=== PATIENT | female | born 1945 | race Hispanic/Latino ===

== ENCOUNTER 2017-02-23 03:51 | Outpatient (CLI) | payer MEDICARE | END 2017-02-23 03:52 | disposition home or self-care (01) | LOC: BICULT 03:51 | PROVIDERS: ATTEND Nurse Practitioner Family | DX: R10.11 Right upper quadrant pain (principal); K76.0 Fatty (change of) liver, not elsewhere classified; Z90.49 Acquired absence of other specified parts of digestive tract | CPT/HCPCS: 76705 ==

== ENCOUNTER 2017-12-28 11:04 | Outpatient (CLI) | payer MEDICARE | END 2017-12-28 11:05 | disposition home or self-care (01) | LOC: BICMAMMO 11:04 | PROVIDERS: ATTEND Nurse Practitioner Family | DX: Z12.31 Encounter for screening mammogram for malignant neoplasm of breast (principal); R92.1 Mammographic calcification found on diagnostic imaging of breast; Z80.3 Family history of malignant neoplasm of breast | CPT/HCPCS: 77063; 77067 ==

== ENCOUNTER 2018-08-04 10:17 | Outpatient (CLI) | payer OTHER ==
--- NOTE | 2018-08-04 10:36 | RAD ---
EXAM: Chest 2 views: HISTORY: Right chest pain COMPARISON: 04/29/2016 FINDINGS: There is a normal-sized cardiomediastinal silhouette. Atherosclerotic calcific lesions are seen in t he aorta. There is no evidence of consolidation, mass, or pleural effusion. The bones are unremarkable. IMPRESSION: No evidence of acute cardiopulmonary disease
== END 2018-08-04 10:18 | disposition home or self-care (01) ==
LOC: BICRAD 10:17
PROVIDERS: ATTEND Nurse Practitioner Family
DX: R07.89 Other chest pain (principal)
CPT/HCPCS: 71046

== ENCOUNTER 2018-09-26 09:17 | Outpatient (CLI) | payer OTHER, MEDICAID ==
--- NOTE | 2018-09-26 11:33 | ULT ---
LIMITED RIGHT BREAST ULTRASOUND: DATE: 09/26/2018. PROVIDED CLINICAL HISTORY: Localized right breast pain. FINDINGS: Correlation is made with screening mammogram done 12/28/2017. The patient was unable to tolerate diag nostic mammography today. Limited sonographic interrogation of the right breast in the region of pat ient pain demonstrates no sonographic abnormality. IMPRESSION: No sonographic abnormality is apparent in the region of patient pain. Negative imaging findings shou ld not preclude further investigation of a clinically suspicious finding. The patient is referred ba ck to her clinician. Diagnostic mammography may be useful if the patient can tolerate such. POS: OFF
== END 2018-09-26 09:18 | disposition home or self-care (01) ==
LOC: BICMAMMO 09:17
PROVIDERS: ATTEND Nurse Practitioner Family
DX: N64.4 Mastodynia (principal)
CPT/HCPCS: G0279

== ENCOUNTER 2018-09-29 09:57 | Emergency (ER) | payer OTHER, MEDICAID ==
--- NOTE | 2018-09-29 13:07 | RAD ---
RIGHT KNEE FOUR VIEWS: INDICATIONS: Hit knee on bed with right knee pain. COMPARISON: None. FINDINGS: There is osteonecrosis involving the distal femur and proximal tibia. There is mild osteoarthrosis o f the right knee with chondrocalcinosis. No joint capsular distention is evident. There is an incom plete, transversely oriented fracture involving the proximal patella, seen best on the lateral projec tion. There are vascular calcifications within the soft tissues of the posterior leg. IMPRESSION: 1. Nondisplaced, proximal, transversely oriented patella fracture. 2. 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 3. Chondrocalcinosis. POS: CET
[2018-09-29] MEDS ORDERED: HYDROcodone/Acetaminophen 5/325 mg Tablet ONE (13:30)
== END 2018-09-29 14:00 | disposition home or self-care (01) ==
LOC: ERS 09:57
DX: S82.034A Nondisplaced transverse fracture of right patella, initial encounter for closed fracture (principal); I10 Essential (primary) hypertension; J45.909 Unspecified asthma, uncomplicated; F32.9 Major depressive disorder, single episode, unspecified; F17.210 Nicotine dependence, cigarettes, uncomplicated; Z79.899 Other long term (current) drug therapy; W06.XXXA Fall from bed, initial encounter

== ENCOUNTER 2019-05-20 10:25 | Inpatient (IN) | payer MEDICARE, MEDICAID ==
[2019-05-20 10:55] LABS: Bacteria/HPF 4+ HPF (None Seen); Bilirubin Negative (Negative); Blood, Urine 1+ (Negative); Clarity Turbid (Clear); Glucose, Urine (Dipstick) Normal (Negative); Leukocyte 250 Leu/uL (Negative); Nitrite Negative (Negative); Protein, Urine (Dipstick) 70 mg/dL (Neg-Trace); RBC/HPF 0-3 HPF (0-3); Squamous Epithelial 0-3 HPF (0-3); WBC/HPF Greater than 50 HPF (0-3)
[2019-05-20 11:29] LABS: ALT (SGPT) 14 U/L (8-55); AST (SGOT) 25 U/L (5-34); Albumin 3.6 g/dL (3.4-4.8); Alkaline Phosphatase 79 U/L (40-110); BUN (Urea Nitrogen) 19 mg/dL (9.8-20.1); Bilirubin, Total 2.8 mg/dL (0.2-1.2); Calc. Creatinine Clearance 0 mL/min (70-130); Calcium 9.2 mg/dL (7.8-10.44); Estimated GFR-MDRD 32; Globulin 2.8 g/dL (2.4-3.5); Glucose 119 mg/dL (83-110); Lipase 16 U/L (8-78); Protein, Total 6.4 g/dL (6.0-8.3)
[2019-05-20 11:32] LABS: #Eosinphils 0.1 thou/uL (0.0-0.7); #Lymphocytes 1.2 thou/uL (1.20-3.40); #Monocytes 0.7 thou/uL (0.11-0.59); #Neutrophils 5.4 thou/uL (1.40-6.50); %Basophils 0.1 % (0.0-1.0); %Eosinophils 1.7 % (0.0-10.0); %Lymphocytes 16.3 % (21.0-51.0); %Monocytes 9.5 % (0.0-10.0); %Neutrophils 72.3 % (42.0-75.0); Hemoglobin 13.3 g/dL (12.0-16.0); MDiff Complete? YES; Macrocytosis MODERATE=16-30 cells (100X) (0-5/hpf); Mean Corpuscular HGB CONC 34.1 g/dL (32.0-36.0); Mean Corpuscular Hemoglobin 36.6 pg (27.0-31.0); Platelet Clumps SLIGHT; Platelet Count 269 thou/uL (130-400); Platelet Morphology Comment Appears Adequate; RBC Distribution Width 11.8 % (11.5-14.5); Red Blood Cell (RBC) Count 3.62 mill/uL (4.20-5.40); White Blood Cell (WBC) Count 7.5 thou/uL (4.8-10.8)
[2019-05-20 11:38] LABS: Anion Gap 21 mmol/L (10-20); Sodium 135 mmol/L (136-145)
--- NOTE | 2019-05-20 11:40 | RAD ---
Portable chest: HISTORY: Dyspnea COMPARISON: 08/04/2018 FINDINGS:Patchy densities in left mid lung field may represent patchy pneumonia. Lung villalobos otherwise clear and unchanged. Heart and mediastinum unremarkable with aortic calcificati on again noted. IMPRESSION:Question areas of patchy infiltrate in the left midlung field.
[2019-05-20 11:41] LABS: Carbon Dioxide 46 mmol/L (23-31); Chloride 70 mmol/L (98-107); Potassium 1.9 mmol/L (3.5-5.1)
[2019-05-20] MEDS ORDERED: cefTRIAXone\\ROCEPHIN 2 GM VIAL ONE (11:44)
[2019-05-20 12:03] LABS: CKMB 0.4 ng/mL (0-6.6)
--- NOTE | 2019-05-20 12:29 | CT ---
CT Stone Protocol History: Flank pain Comparison: CT abdomen and pelvis with contrast 2011 Findings: Mild scarring lung bases and bronchiectasis. No pericardial effusion. Diffuse hepatic steat osis. Prior cholecystectomy. Mild fatty atrophy of the pancreas. No nephroureterolithiasis or hydroureteronephrosis. No secondary evidence of a recently passed stone. There is a fat containing right indirect inguinal hernia with some congestive changes. The hernia nec k measures 2.9 cm size. No free fluid associated with it. There is also no bowel involvement of this hernia. There is moderate diverticular disease of the sigmoid colon without active current inflammation. Mode rate facet arthrosis lower lumbar spine. No acute osseous abnormality. Impression: 1. Fat containing right indirect inguinal hernia with a 2.9 cm neck with mild vascular congestive jamie nges. No free fluid or bowel involvement within the hernia. This is similar dating back to 2011. 2. Moderate diverticular disease of the sigmoid colon without active current inflammation. 3. No hydronephrosis. 4. Few posterior calcified pleural plaques can be seen with asbestos related pleural disease or prior hemothorax.
[2019-05-20] MEDS ORDERED: Potassium Chloride 20 MEQ in Premix Bag 1 BAG IVPB SCH (12:30)
[2019-05-20] MEDS ORDERED: Magnesium 2 GM/50 ML BAG (IN WATER) ONE (12:32)
[2019-05-20] MEDS ORDERED: Potassium Chloride 20 MEQ TAB ONE (12:36)
[2019-05-20] MEDS ORDERED: Aspirin Chewable 81 MG TAB ONE (13:05)
[2019-05-20] MEDS ORDERED: Sodium Chloride 0.9% 0 ML ONE (13:26)
[2019-05-20] MEDS ORDERED: Azithromycin 500 MG VIAL ONE (13:26)
[2019-05-20] MEDS ORDERED: Ondansetron PF 4 MG/2 ML Vial IVP PRN (14:01)
[2019-05-20] MEDS ORDERED: Ondansetron ODT 4 MG TAB SL PRN (14:01)
[2019-05-20 15:04] LABS: Troponin I 0.059 ng/mL (< 0.028)
[2019-05-20 18:03] LABS: Troponin I 0.069 ng/mL (< 0.028)
[2019-05-20] MEDS ORDERED: Acetaminophen 325 MG TAB PO PRN (18:55)
--- NOTE | 2019-05-20 18:56 | PDOC.HHP ---
Hospitalist HPI - History of Present Illness weakness History of Present Illness: This is a 74 year old female with past medical history of diastolic CHF, hypertension, asthma who presented to the ER with generalized weakness. The patient states that over the past one week she has had no appetite and felt that she was losing strength and could barely walk. The patient copmlained of feeling dehydrated. She has been taking lasix daily for fluid retention. She also has been having dysuria for the past one week and urgency. She also has been having a dry cough for the past few days, no shortness of breath or chest pain. She denies fever but has been feeling cold. She denies hematuria. She went to her PCP today who ordered some labs and told her to go to the ER. ED Course: The patient had normal vitals and placed on 2L oxygen due to saturation in the low 90's per ER staff. Patient had an EKG which showed St and T wave abnormality nonspecific. Troponin mildly positive. Patient has not had any chest pain. Patient had a chest X Ray that showed possible infiltrate in the right leg. Patient was found to have low potassium of 1.9. She was given normal saline, ceftriaxone, azithromycin, aspirin, magnesium, duoneb and 60 of potassium. Hospitalist ROS - Review of Systems Constitutional: reports: chills. denies: fever Eyes: denies: pain, vision change ENT: denies: ear pain, ear discharge Respiratory: denies: cough, dry, shortness of breath Cardiovascular: denies: chest pain, palpitations, orthopnea Gastrointestinal: denies: nausea, vomiting, abdominal pain, diarrhea Genitourinary: denies: dysuria, frequency, incontinence Musculoskeletal: denies: neck pain, shoulder pain, arm pain Neurological: denies: weakness, numbness, incoordination - Medication Medications: Lasix Patient does not recall her other medications Hospitalist History - Past Medical History Other Medical History: Diastolic heart failure Asthma - Past Surgical History Past Surgical History: reports: Cholecystectomy, Hysterectomy - Family History Other Family History: Son had heart problem and fainted 3-4 years ago - Social History Smoking Status: Current every day smoker (Has been smoking since age of 14. Smoked 1 pack per day, now weaning for pas two months) Alcohol: reports: None Drugs: denies: none Living Situation: With Family - Exam General Appearance: NAD, awake alert Eye: PERRL, anicteric sclera ENT: normocephalic atraumatic, no oropharyngeal lesions Neck: supple, no JVD Heart: RRR, no murmur, no gallops, no rubs Respiratory: CTAB, no wheezes, no ronchi Respiratory - other findings: bilateral crackles Gastrointestinal: soft, non-tender, non-distended, normal bowel sounds Extremities: no cyanosis, no clubbing, no edema, 1+ LE edema Skin: normal turgor, no lesions, no rashes Neurological: cranial nerve grossly intact, normal sensation to touch, no focal deficits, no new deficit Hospitalist Results - Labs Result Diagrams: 05/20/19 10:50 05/20/19 10:50 Lab results: WBC 7.5 thou/uL (4.8-10.8) 05/20/19 10:50 Hgb 13.3 g/dL (12.0-16.0) 05/20/19 10:50 Hct 38.8 % (36.0-47.0) 05/20/19 10:50 MCV 107.0 fL (78.0-98.0) H 05/20/19 10:50 Plt Count 269 thou/uL (130-400) 05/20/19 10:50 Neutrophils % 72.3 % (42.0-75.0) 05/20/19 10:50 Sodium 135 mmol/L (136-145) L 05/20/19 10:50 Potassium 1.9 mmol/L (3.5-5.1) L* 05/20/19 10:50 Chloride 70 mmol/L (98-107) L* 05/20/19 10:50 Carbon Dioxide 46 mmol/L (23-31) H* 05/20/19 10:50 BUN 19 mg/dL (9.8-20.1) 05/20/19 10:50 Creatinine 1.57 mg/dL (0.6-1.1) H 05/20/19 10:50 Glucose 119 mg/dL (83-110) H 05/20/19 10:50 Lactic Acid 1.3 mmol/L (0.5-2.2) 05/20/19 10:50 Calcium 9.2 mg/dL (7.8-10.44) 05/20/19 10:50 Total Bilirubin 2.8 mg/dL (0.2-1.2) H 05/20/19 10:50 AST 25 U/L (5-34) 05/20/19 10:50 ALT 14 U/L (8-55) 05/20/19 10:50 Alkaline Phosphatase 79 U/L (40-110) 05/20/19 10:50 CK-MB (CK-2) 0.4 ng/mL (0-6.6) 05/20/19 11:10 Troponin I 0.069 ng/mL (< 0.028) H 05/20/19 17:39 B-Natriuretic Peptide 101.3 pg/mL (0-100) H 05/20/19 11:07 Serum Total Protein 6.4 g/dL (6.0-8.3) 05/20/19 10:50 Albumin 3.6 g/dL (3.4-4.8) 05/20/19 10:50 Lipase 16 U/L (8-78) 05/20/19 10:50 Urine Ketones Negative mg/dL (Negative) 05/20/19 10:38 Urine Blood 1+ (Negative) A 05/20/19 10:38 Urine Nitrite Negative (Negative) 05/20/19 10:38 Ur Leukocyte Esterase 250 Tomy/uL (Negative) A 05/20/19 10:38 Urine RBC 0-3 HPF (0-3) 05/20/19 10:38 Urine WBC Greater than 50 HPF (0-3) A 05/20/19 10:38 Ur Squamous Epith Cells 0-3 HPF (0-3) 05/20/19 10:38 Urine Bacteria 4+ HPF (None Seen) A 05/20/19 10:38 Hospitalist H&P A/P - Plan Plan: CT abdomen: right indirect inguinal hernia with 2.9 cm neck with mild vascular congestive changes similar to 2012. No hydro. Mod diverticular disease without inflammation. Asbestosis related pleural disease with few posterior calcified pleural plaques Chest X ray: left patchy infiltrate This is a 74 year old female with past medical history of diastolic CHF, asthma , hyperlipidemia who presented to the ER with generalized weakness, cough, dysuria #Hypokalemia #Hyponatremia #Contraction alkalosis - sec to lasix - potassium 1.9, s/p 60 mg lasix and 500 mL normal saline Will repeat BMP Right sided pneumonia - continue IV ceftriaxone and azithromycin - check resp viral panel DOLORES - likely from lasix - creatinine increased to 1.57 - will continue IV fluids Elevated troponin - likely from elevated creatinine - check ECHO Code status: full code
[2019-05-20] MEDS ORDERED: Albuterol Sulfate 1.25 MG/3 ML NEB NEB PRN (18:59)
[2019-05-20] MEDS ORDERED: Sodium Chloride 0.9% 1,000 ML IV SCH (22:00)
[2019-05-20] MEDS: Montelukast Sodium 10 mg Tablet PO SCH (22:46)
[2019-05-21 00:59] LABS: BUN (Urea Nitrogen) 18 mg/dL (9.8-20.1); Calc. Creatinine Clearance 70 mL/min (70-130); Calcium 8.3 mg/dL (7.8-10.44); Estimated GFR-MDRD 39; Glucose 107 mg/dL (83-110); Magnesium 2.4 mg/dL (1.6-2.6)
[2019-05-21] MEDS ORDERED: Potassium Chloride 20 MEQ TAB PO SCH ×3 (01:30→12:15)
[2019-05-21 01:46] LABS: Anion Gap 16 mmol/L (10-20); Chloride 75 mmol/L (98-107); Sodium 134 mmol/L (136-145)
[2019-05-21 01:50] LABS: Carbon Dioxide 45 mmol/L (23-31); Potassium 1.8 mmol/L (3.5-5.1)
[2019-05-21] MEDS: NS 0.9% w/ 40 MEQ KCL 1,000 ML IV SCH ×2 (01:53→16:10)
[2019-05-21] MEDS: cefTRIAXone\\ROCEPHIN 1 GM in Sodium Chloride 0.9% 100 ML IVPB SCH (06:10)
[2019-05-21] MEDS: Mometasone/Formoterol 120 PUFF INHALER INH SCH ×2 (07:09→18:24)
[2019-05-21] MEDS: Rosuvastatin 20 MG TAB PO SCH (08:17)
[2019-05-21] MEDS: Fish Oil 1,000 MG CAP PO SCH (08:17)
[2019-05-21] MEDS: Aspirin 81 mg Enteric Coated Tablet PO SCH (08:17)
[2019-05-21] MEDS: FLUoxetine HCl 20 MG CAP PO SCH (08:18)
[2019-05-21] MEDS ORDERED: Doxycycline 100 MG CAP PO SCH ×2 (10:28→10:45)
[2019-05-21 11:13] LABS: BUN (Urea Nitrogen) 15 mg/dL (9.8-20.1); Calc. Creatinine Clearance 72 mL/min (70-130); Calcium 8.7 mg/dL (7.8-10.44); Estimated GFR-MDRD 39; Glucose 124 mg/dL (83-110)
[2019-05-21 11:29] LABS: Carbon Dioxide 37 mmol/L (23-31); Chloride 81 mmol/L (98-107); Potassium 2.2 mmol/L (3.5-5.1); Sodium 136 mmol/L (136-145)
[2019-05-21] MEDS ORDERED: Potassium Chloride 20 MEQ TAB PO ONE (11:54)
--- NOTE | 2019-05-21 12:32 | PDOC.HOSPP ---
- Subjective Encounter Date: 05/21/19 Encounter Time: 12:31 Subjective: The patient feels better. She still has a cough but not as productive. She feels that she is unable to clear up her phlegm. No fevers. No abd pain, nausea, vomiting - Objective Vital Signs & Weight: Vital Signs (12 hours) Temp Pulse Resp BP BP Pulse Ox 05/21/19 11:02 98.1 F 68 18 131/60 98 05/21/19 07:01 97.6 F 56 L 18 103/46 L 95 05/21/19 03:18 98.2 F 61 18 102/51 L 95 Weight Weight 267 lb 4.8 oz I&O: 05/20/19 05/21/19 05/22/19 06:59 06:59 06:59 Intake Total 300 740 Output Total 250 200 Balance 50 540 Result Diagrams: 05/20/19 10:50 05/21/19 10:41 Additional Labs: Accuchecks 05/20/19 20:39 POC Glucose 119 H Hospitalist ROS - Review of Systems Constitutional: denies: fever, chills - Medication Medications: Active Medications Generic Name Dose Route Start Last Admin Trade Name Freq PRN Reason Stop Dose Admin Aspirin 81 mg 05/21/19 09:00 05/21/19 08:17 Ecotrin PO 81 mg DAILY NEELAM Administration Fish Oil 1,000 mg 05/21/19 09:00 05/21/19 08:17 Fish Oil PO 1,000 mg DAILY NEELAM Administration Fluoxetine HCl 40 mg 05/21/19 09:00 05/21/19 08:18 Prozac PO 40 mg DAILY NEELAM Administration Ceftriaxone Sodium 1 gm/ 100 mls @ 200 mls/hr 05/21/19 06:00 05/21/19 06:10 Sodium Chloride IVPB 100 mls 0600 NEELAM Administration Potassium Chloride/Sodium Chloride 1,000 mls @ 75 mls/hr 05/21/19 01:45 05/20 01:53 Ns 0.9% W/ 40 Meq Kcl IV 1,000 mls .[id number] NEELAM Administration Mometasone Furoate/Formoterol Fumar 2 puff 05/21/19 06:30 05/21/19 07:09 Dulera 200 Mcg/5 Mcg Inhaler INH 2 puff BID-RT NEELAM Administration Montelukast Sodium 10 mg 05/20/19 21:00 05/20/19 22:46 Singulair PO 10 mg HS NEELAM Administration Potassium Chloride 40 meq 05/21/19 12:00 05/21/19 12:18 K-Dur PO 05/21/19 14:00 40 meq NOW NEELAM Administration Potassium Chloride 40 meq 05/21/19 12:15 05/21/19 12:19 K-Dur PO 05/21/19 14:15 40 meq NOW NEELAM Administration Rosuvastatin Calcium 20 mg 05/21/19 09:00 05/21/19 08:17 Crestor PO 20 mg DAILY NEELAM Administration - Exam General Appearance: NAD, awake alert Eye: PERRL, anicteric sclera ENT: normocephalic atraumatic, no oropharyngeal lesions Neck: supple, no JVD Heart: RRR, no murmur, no gallops, no rubs Respiratory: CTAB, no wheezes Respiratory - other findings: diff to assess lungs on expiration due to coughing Gastrointestinal: soft, non-tender, non-distended, normal bowel sounds Hosp A/P - Plan This is a 74 year old female with past medical history of diastolic CHF, asthma , hyperlipidemia who presented to the ER with generalized weakness, cough, dysuria #Hypokalemia- improved #Contraction alkalosis - sec to lasix - potassium still 2.2 - will add additional 80 mg po lasix. Continue NS with KCL in fluids. Repeat BMP at 4:00 pm #Acute hypoxic respiratory insufficiency secondary to left sided pneumonia #Asbestosis - chest x ray showed patchy infiltrate in the left side and pleural plaques bilaterally. On 2L nasal cannula, attempt to wean oxygen to 92% - continue IV ceftriaxone and azithromycin - resp viral panel normal - will add prednisone and mucinex DOLORES - likely from lasix - creatinine improving to 1.32 - will continue IV fluids Elevated troponin - likely from elevated creatinine - ECOH pending #Hyponatremia- resolved Dispo: pending improvement of potassium and kidney function
[2019-05-21] MEDS ORDERED: predniSONE 20 MG TAB PO SCH ×2 (12:37→12:45)
[2019-05-21] MEDS ORDERED: guaiFENesin ER 600 MG TAB PO SCH ×2 (12:38→12:45)
[2019-05-21 14:39] VITALS: BMI 43.1
[2019-05-21 19:25] LABS: BUN (Urea Nitrogen) 14 mg/dL (9.8-20.1); Calc. Creatinine Clearance 65 mL/min (70-130); Calcium 8.7 mg/dL (7.8-10.44); Estimated GFR-MDRD 35; Glucose 178 mg/dL (83-110)
[2019-05-21 19:35] LABS: Anion Gap 18 mmol/L (10-20); Carbon Dioxide 35 mmol/L (23-31); Chloride 84 mmol/L (98-107); Sodium 134 mmol/L (136-145)
[2019-05-21 19:36] LABS: Potassium 2.7 mmol/L (3.5-5.1)
[2019-05-21] MEDS: guaiFENesin ER 600 MG TAB PO SCH (19:46)
[2019-05-21] MEDS: Montelukast Sodium 10 mg Tablet PO SCH (19:46)
[2019-05-21] MEDS: Doxycycline 100 MG CAP PO SCH (19:46)
[2019-05-22 04:37] LABS: Mean Corpuscular HGB CONC 34.9 g/dL (32.0-36.0); Mean Corpuscular Hemoglobin 37.9 pg (27.0-31.0); Mean Platelet Volume 8.5 fL (7.4-10.4); Platelet Count 224 thou/uL (130-400); RBC Distribution Width 11.7 % (11.5-14.5); Red Blood Cell (RBC) Count 2.89 mill/uL (4.20-5.40); White Blood Cell (WBC) Count 6.7 thou/uL (4.8-10.8)
[2019-05-22] MEDS ORDERED: Dextrose 50% Abboject 50 ML SYRINGE ONE (04:56)
[2019-05-22 04:57] LABS: BUN (Urea Nitrogen) 14 mg/dL (9.8-20.1); Calc. Creatinine Clearance 77 mL/min (70-130); Calcium 8.5 mg/dL (7.8-10.44); Estimated GFR-MDRD 43; Glucose 130 mg/dL (83-110)
[2019-05-22 05:06] LABS: Anion Gap 14 mmol/L (10-20); Carbon Dioxide 37 mmol/L (23-31); Chloride 88 mmol/L (98-107); Sodium 136 mmol/L (136-145)
[2019-05-22 05:09] LABS: Potassium 2.6 mmol/L (3.5-5.1)
[2019-05-22] MEDS: cefTRIAXone\\ROCEPHIN 1 GM in Sodium Chloride 0.9% 100 ML IVPB SCH (05:25)
[2019-05-22] MEDS: NS 0.9% w/ 40 MEQ KCL 1,000 ML IV SCH ×2 (05:26→18:25)
[2019-05-22] MEDS: Mometasone/Formoterol 120 PUFF INHALER INH SCH ×2 (06:37→18:47)
[2019-05-22] MEDS ORDERED: Potassium Chloride 20 MEQ TAB PO SCH ×2 (08:00→15:30)
[2019-05-22] MEDS: Rosuvastatin 20 MG TAB PO SCH (09:57)
[2019-05-22] MEDS: Fish Oil 1,000 MG CAP PO SCH (09:57)
[2019-05-22] MEDS: Aspirin 81 mg Enteric Coated Tablet PO SCH (09:57)
[2019-05-22] MEDS: Doxycycline 100 MG CAP PO SCH ×2 (09:57→19:58)
[2019-05-22] MEDS: guaiFENesin ER 600 MG TAB PO SCH ×2 (09:58→19:58)
[2019-05-22] MEDS: FLUoxetine HCl 20 MG CAP PO SCH (09:58)
[2019-05-22] MEDS: predniSONE 20 MG TAB PO SCH (09:59)
[2019-05-22 14:43] LABS: BUN (Urea Nitrogen) 13 mg/dL (9.8-20.1); Calc. Creatinine Clearance 72 mL/min (70-130); Calcium 8.8 mg/dL (7.8-10.44); Estimated GFR-MDRD 39; Glucose 159 mg/dL (83-110)
[2019-05-22 14:53] LABS: Anion Gap 16 mmol/L (10-20); Carbon Dioxide 35 mmol/L (23-31); Chloride 89 mmol/L (98-107); Potassium 2.6 mmol/L (3.5-5.1); Sodium 137 mmol/L (136-145)
[2019-05-22] MEDS: Heparin 5,000 UNITS/ML VIAL SC SCH ×2 (15:43→19:59)
--- NOTE | 2019-05-22 18:12 | PDOC.HOSPP ---
- Subjective Encounter Date: 05/22/19 Encounter Time: 15:30 Subjective: The patient states she is still coughing,has nitin cough. No abdominal pain. She says she has no appetite and gets full from just eating small bites. No nausea or vomiting. Urine is dark in color. No diarrhea. - Objective Vital Signs & Weight: Vital Signs (12 hours) Temp Pulse Resp BP BP Pulse Ox 05/22/19 15:38 98.7 F 76 18 111/46 L 92 L 05/22/19 14:16 70 16 95 05/22/19 11:48 98.1 F 74 16 107/54 L 96 05/22/19 10:34 69 16 96 05/22/19 07:46 98.7 F 68 12 105/51 L 93 L 05/22/19 06:38 66 16 99 Weight Admit Weight 266 lb Weight 267 lb 4.8 oz I&O: 05/21/19 05/22/19 05/23/19 06:59 06:59 06:59 Intake Total 300 4456 Output Total 250 900 Balance 50 3556 Result Diagrams: 05/22/19 04:24 05/22/19 14:07 Hospitalist ROS - Review of Systems Constitutional: denies: fever, chills - Medication Medications: Active Medications Generic Name Dose Route Start Last Admin Trade Name Jaydenq PRN Reason Stop Dose Admin Albuterol/Ipratropium 3 ml 05/21/19 14:30 05/22/19 14:16 Duoneb EZPAP 3 ml [id number] NEELAM Administration Aspirin 81 mg 05/21/19 09:00 05/22/19 09:57 Ecotrin PO 81 mg DAILY NEELAM Administration Doxycycline Hyclate 100 mg 05/21/19 21:00 05/22/19 09:57 Vibramycin PO 100 mg BID NEELAM Administration Fish Oil 1,000 mg 05/21/19 09:00 05/22/19 09:57 Fish Oil PO 1,000 mg DAILY NEELAM Administration Fluoxetine HCl 40 mg 05/21/19 09:00 05/22/19 09:58 Prozac PO 40 mg DAILY NEELAM Administration Guaifenesin 600 mg 05/21/19 21:00 05/22/19 09:58 Mucinex PO 600 mg Q12HR NEELAM Administration Heparin Sodium (Porcine) 5,000 units 05/22/19 15:00 05/22/19 15:43 Heparin SC 5,000 units TID NEELAM Administration Ceftriaxone Sodium 1 gm/ 100 mls @ 200 mls/hr 05/21/19 06:00 05/22/19 05:25 Sodium Chloride IVPB 100 mls 0600 NEELAM Administration Potassium Chloride/Sodium Chloride 1,000 mls @ 75 mls/hr 05/21/19 01:45 05/21 05:26 Ns 0.9% W/ 40 Meq Kcl IV 1,000 mls .[id number] NEELAM Administration Mometasone Furoate/Formoterol Fumar 2 puff 05/21/19 06:30 05/22/19 06:37 Dulera 200 Mcg/5 Mcg Inhaler INH 2 puff BID-RT NEELAM Administration Montelukast Sodium 10 mg 05/20/19 21:00 05/21/19 19:46 Singulair PO 10 mg HS NEELAM Administration Prednisone 40 mg 05/22/19 08:00 05/22/19 09:59 Prednisone PO 40 mg QAM-WM NEELAM Administration Rosuvastatin Calcium 20 mg 05/21/19 09:00 05/22/19 09:57 Crestor PO 20 mg DAILY NEELAM Administration Sodium Chloride 10 ml 05/21/19 21:00 05/22/19 09:59 Flush - Normal Saline IVF 10 ml Q12HR NEELAM Administration - Exam General Appearance: NAD, awake alert Eye: PERRL, anicteric sclera ENT: no oropharyngeal lesions Heart: RRR, no murmur, no gallops, no rubs Respiratory: CTAB, no wheezes, no rales, no ronchi Gastrointestinal: soft, non-tender, non-distended, normal bowel sounds Extremities: no cyanosis, no clubbing, no edema Extremities - other findings: left hand slightly swollen and cold, but nontender. Skin: normal turgor, no lesions, no rashes Neurological: cranial nerve grossly intact, normal sensation to touch, no focal deficits, no new deficit Hosp A/P - Plan ECHO: EF 60-65% with diastolic dysfunction. Trace MR, mildTR This is a 74 year old female with past medical history of diastolic CHF, asthma , hyperlipidemia who presented to the ER with generalized weakness, cough, dysuria #Hypokalemia- improved #Contraction alkalosis - sec to lasix - potassium still 2.6. Give another 80 mg. Check urine potassium - consult nephrology - d/c fluids since hands are swelling - patient encouraged to eat more #Abd bloating- possibly gastroparesis - check gastric emptying study in the am #Acute hypoxic respiratory insufficiency secondary to left sided pneumonia #Asbestosis - chest x ray showed patchy infiltrate in the left side and pleural plaques bilaterally. On 2L nasal cannula, attempt to wean oxygen to 92% - continue IV ceftriaxone and azithromycin - resp viral panel normal - continue prednisone and mucinex DOLORES - likely from lasix - creatinine improving to 1.32 - will d/c NS Elevated troponin - likely from elevated creatinine - ECHO Showed diastolic dysfunction, trace MR #Hyponatremia- resolved Dispo: pending improvement of potassium and kidney function
[2019-05-22] MEDS ORDERED: Benzonatate 100 MG CAP PO PRN (18:14)
[2019-05-22] MEDS: Montelukast Sodium 10 mg Tablet PO SCH (19:58)
[2019-05-22] MEDS: Pantoprazole 40 MG GRANULES PACKET PO SCH (19:59)
--- NOTE | 2019-05-22 20:18 | RAD ---
EXAM: CHEST ONE VIEW HISTORY: Persistent cough COMPARISON: 05/20/2019 FINDINGS: Cardiac silhouette is within normal limits. Pulmonary vasculature is at the upper limits of normal an d magnified by projection. A few patchy densities were seen in the left midlung zone the prior study. There is now what appears to be a nodular density in the left upper lung zone. This has the ap pearance of a pulmonary nodule, but this was not identified on the recent exam and could be related to residual focal area of pneumonitis. No new area of consolidation or definite pleural fluid is seen . No other interval change. IMPRESSION: Previously described ill-defined nodular densities left midlung zone have resolved. However, there is now a nodular density seen in the left upper lung zone which could be related to focal area of pneumonitis as well, but a pulmonary nodule cannot be excluded. Given that a discrete pulmonary nodul e was not seen on the recent study of 05/20/2019 suggests that this is probably related to focal area of pneumonitis. A follow-up PA and lateral chest x-ray is recommended to ensure resolution.
[2019-05-22 20:34] LABS: Anion Gap 15 mmol/L (10-20); BUN (Urea Nitrogen) 13 mg/dL (9.8-20.1); Calc. Creatinine Clearance 71 mL/min (70-130); Calcium 9.1 mg/dL (7.8-10.44); Carbon Dioxide 33 mmol/L (23-31); Chloride 92 mmol/L (98-107); Estimated GFR-MDRD 39; Glucose 174 mg/dL (83-110); Potassium 3.3 mmol/L (3.5-5.1); Sodium 137 mmol/L (136-145)
--- NOTE | 2019-05-23 00:41 | CON ---
DATE OF CONSULTATION: 05/22/2019 CONSULTING PHYSICIAN: Dr. Godfrey. REASON FOR CONSULT: Hypokalemia. REASON FOR ADMISSION: Weakness. HISTORY OF PRESENT ILLNESS: A 74-year-old female with history of CHF, hypertension, and asthma, came to the hospital with weakness and was found to have hypokalemic, DOLORES, and hypovolemia. She is being resuscitated with fluids and also potassium replaced, but her hypokalemia is persistent, and Nephrology was consulted. The patient denies any diarrhea. The patient was having dry heaves before the hospital. No fever or chills. No chest pain or palpitation. No history of any hyperkalemia in the past. The patient denies any cramping. She has had weakness and low appetite and has not been eating. She said she has been only drinking fluid last few weeks. PAST MEDICAL HISTORY: Positive for CHF, diastolic heart failure, and asthma. PAST SURGICAL HISTORY: Cholecystectomy and hysterectomy. HOME MEDICATIONS: She was on; 1. Lasix 20 mg p.o. b.i.d. 2. Potassium chloride 20 mEq b.i.d. 3. Rosuvastatin. 4. [place]-3. 5. Aspirin. 6. Fluticasone. 7. Fluoxetine. 8. Montelukast. ALLERGIES: TO SULFA. SOCIAL HISTORY: No smoking, alcohol, or illicit drugs. FAMILY HISTORY: No history of kidney disease. REVIEW OF SYSTEMS: The following complete review of systems was negative, unless otherwise mentioned in the HPI or below: Constitutional: Weight loss or gain, ability to conduct usual activities. Skin: Rash, itching. Eyes: Double vision, pain. ENT/Mouth: Nose bleeding, neck stiffness, pain, tenderness. Cardiovascular: Palpitations, dyspnea on exertion, orthopnea. Respiratory: Shortness of breath, wheezing, cough, hemoptysis, fever or night sweats. Gastrointestinal: Poor appetite, abdominal pain, heartburn, nausea, vomiting, constipation, or diarrhea. Genitourinary: Urgency, frequency, dysuria, nocturia. Musculoskeletal: Pain, swelling. Neurologic/Psychiatric: Anxiety, depression. Allergy/Immunologic: Skin rash, bleeding tendency. PHYSICAL EXAMINATION: GENERAL: Obese female, in no apparent distress. VITAL SIGNS: Temperature 98.7, pulse 73, respiratory rate 18, and blood pressure 111/46. HEENT: Atraumatic, normocephalic. Oral mucosa moist. NECK: Supple. CVS: S1 and S2. Regular rate and rhythm. RESPIRATORY: Clear. DERMATOLOGIC: No skin rash. NEUROLOGIC: Alert and awake. PSYCHIATRIC: Mood and affect normal. LABORATORY DATA: Hemoglobin 11.0. Potassium 2.6, BUN is 13, and creatinine is 1.3. Baseline creatinine seems to be 1.3. ASSESSMENT AND PLAN: 1. Hypokalemia. She had a few episodes of mild hypokalemia in the past, might be exacerbated by the Lasix. She does have alkalosis which suggested either extrarenal or renal causes. Agree with urine potassium and also check urine chloride. If urine potassium is elevated, renal cause should be ruled out or otherwise extra renal cause. We will continue to monitor. Monitor urine potassium and urine chloride. Continue to replace potassium. She was given 20 mEq of potassium already, and we will closely monitor. We will check magnesium and phosphorus level too. 2. Edema, controlled. 3. Metabolic alkalosis, most likely from diuretics. Continue IV fluids. 4. Acute kidney injury, better. Continue IV fluids. 5. Congestive heart failure. We will monitor. Plan is to replace potassium. Continue IV fluids and check urine studies and monitor electrolytes. Thank you for the consult. We will follow. Job ID: [id number]
[2019-05-23] MEDS: cefTRIAXone\\ROCEPHIN 1 GM in Sodium Chloride 0.9% 100 ML IVPB SCH (04:58)
[2019-05-23 05:01] LABS: Phosphorus 2.2 mg/dL (2.3-4.7)
[2019-05-23] MEDS: Mometasone/Formoterol 120 PUFF INHALER INH SCH ×2 (06:51→19:26)
[2019-05-23] MEDS: Heparin 5,000 UNITS/ML VIAL SC SCH ×3 (14:05→19:50)
[2019-05-23] MEDS: guaiFENesin ER 600 MG TAB PO SCH ×2 (14:05→19:50)
[2019-05-23] MEDS: Aspirin 81 mg Enteric Coated Tablet PO SCH (14:07)
[2019-05-23] MEDS: Fish Oil 1,000 MG CAP PO SCH (14:07)
[2019-05-23] MEDS: FLUoxetine HCl 20 MG CAP PO SCH (14:07)
[2019-05-23] MEDS: predniSONE 20 MG TAB PO SCH (14:07)
[2019-05-23] MEDS: Doxycycline 100 MG CAP PO SCH ×2 (14:07→19:50)
[2019-05-23] MEDS: Rosuvastatin 20 MG TAB PO SCH (14:08)
[2019-05-23] MEDS: Potassium Chloride 20 MEQ TAB PO SCH ×2 (14:12→19:50)
--- NOTE | 2019-05-23 14:15 | NM ---
RADIONUCLIDE GASTRIC EMPTYING SCAN: 05/23/19 HISTORY: Early satiety after meals. Concern for gastroparesis. RADIOPHARMACEUTICAL: 2 millicuries technetium 99m sulfur colloid administered orally in scrambled eggs. FINDINGS: There is 16% emptying of the ingested gastric contents at 1 hour, 75% emptying at 2 hours, and 96% em ptying at 3 hours and 98% emptying at 4 hours. IMPRESSION: Normal exam. POS: TPC
[2019-05-23 14:23] LABS: Hemoglobin 11.7 g/dL (12.0-16.0); Mean Corpuscular Hemoglobin 36.8 pg (27.0-31.0); Platelet Count 251 thou/uL (130-400); RBC Distribution Width 12.1 % (11.5-14.5); Red Blood Cell (RBC) Count 3.19 mill/uL (4.20-5.40); White Blood Cell (WBC) Count 10.6 thou/uL (4.8-10.8)
[2019-05-23 14:49] LABS: Anion Gap 14 mmol/L (10-20); BUN (Urea Nitrogen) 12 mg/dL (9.8-20.1); Calc. Creatinine Clearance 81 mL/min (70-130); Calcium 9.3 mg/dL (7.8-10.44); Carbon Dioxide 33 mmol/L (23-31); Chloride 96 mmol/L (98-107); Estimated GFR-MDRD 45; Glucose 114 mg/dL (83-110); Potassium 3.5 mmol/L (3.5-5.1); Sodium 139 mmol/L (136-145)
--- NOTE | 2019-05-23 15:45 | PRG ---
DATE OF SERVICE: 05/23/2019 SUBJECTIVE: Patient was seen and examined at bedside and overnight events noted. Patient denies any shortness of breath or chest pain or palpitation. No history of nausea or vomiting or diarrhea or fever or chills or cramps. OBJECTIVE: General: This is well-built female, in no apparent distress. Vital Signs: Temperature 98.3. Heart Rate 74. Respiratory rate 14. Blood pressure 98/54. HEENT: Atraumatic, normocephalic. Oral mucosa is moist. Neck: Supple. Cardiovascular: S1, S2 heard. Rate and rhythm regular. Respiratory: Clear to auscultation. Gastrointestinal: Abdomen is soft. Musculoskeletal: No tenderness. No edema. Dermatologic: No skin rash. Neurologic: Alert and awake and oriented x3. No focal neurologic deficits. Moving all the extremities. Psychiatric: Mood and affect normal. LABORATORY DATA: Potassium 3.5, BUN is 12, creatinine is 1.1. ASSESSMENT AND PLAN: 1. Hypokalemia, better. We will continue on potassium chloride 40 mEq b.i.d., seems to be most likely from diuretics. 2. Alkalosis. We will monitor. 3. Hypophosphatemia. Replace and monitor. 4. Edema, controlled. 5. Cardiorenal syndrome. 6. Hypertension. 7. Acute kidney injury, better. 8. Potassium seems to be better. She did have an elevated urine potassium, so most likely a renal loss, most likely from diuretics, less likely to be from congenital syndromes. We will continue to monitor. Replace phosphorus and potassium. Monitor magnesium. We will follow. Job ID: [id number]
[2019-05-23] MEDS: Montelukast Sodium 10 mg Tablet PO SCH (19:50)
[2019-05-23] MEDS: Pantoprazole 40 MG GRANULES PACKET PO SCH (19:50)
[2019-05-24] MEDS: cefTRIAXone\\ROCEPHIN 1 GM in Sodium Chloride 0.9% 100 ML IVPB SCH (04:52)
[2019-05-24] MEDS: Mometasone/Formoterol 120 PUFF INHALER INH SCH ×2 (06:46→18:48)
--- NOTE | 2019-05-24 07:31 | PDOC.HOSPP ---
- Subjective Encounter Date: 05/23/19 Encounter Time: 19:00 Subjective: Late entry note: 05/22 Patient was doing better, states that her cough had significantly improved. No longer hacking. Had 45 minute discussion with family, they were concerned about patient being depressed and was wondering whether antidepressant could be increased, however no antidepressant identified on home med list She hasn't gotten out of bed yet - Objective Vital Signs & Weight: Vital Signs (12 hours) Temp Pulse Resp BP BP Pulse Ox 05/24/19 06:49 79 16 93 L 05/24/19 06:46 79 16 93 L 05/24/19 03:10 98.3 F 74 18 116/55 L 92 L 05/24/19 02:27 74 6 L 05/23/19 23:00 98.0 F 85 18 104/54 L 92 L 05/23/19 22:21 72 16 96 05/23/19 19:41 98.1 F 85 18 100/47 L 95 Weight Admit Weight 266 lb Weight 267 lb 4.8 oz I&O: 05/23/19 05/24/19 05/25/19 06:59 06:59 06:59 Intake Total 1100 1300 Output Total 500 1100 Balance 600 200 Result Diagrams: 05/23/19 14:15 05/23/19 14:14 Hospitalist ROS - Review of Systems Constitutional: denies: fever, chills - Medication Medications: Active Medications Generic Name Dose Route Start Last Admin Trade Name Freq PRN Reason Stop Dose Admin Albuterol/Ipratropium 3 ml 05/21/19 14:30 05/24/19 06:49 Duoneb EZPAP 3 ml [id number] NEELAM Administration Aspirin 81 mg 05/21/19 09:00 05/23/19 14:07 Ecotrin PO 81 mg DAILY NEELAM Administration Doxycycline Hyclate 100 mg 05/21/19 21:00 05/23/19 19:50 Vibramycin PO 100 mg BID NEELAM Administration Fish Oil 1,000 mg 05/21/19 09:00 05/23/19 14:07 Fish Oil PO 1,000 mg DAILY NEELAM Administration Fluoxetine HCl 40 mg 05/21/19 09:00 05/23/19 14:07 Prozac PO 40 mg DAILY NEELAM Administration Guaifenesin 600 mg 05/21/19 21:00 05/23/19 19:50 Mucinex PO 600 mg Q12HR NEELAM Administration Heparin Sodium (Porcine) 5,000 units 05/22/19 15:00 05/23/19 19:50 Heparin SC 5,000 units TID NEELAM Administration Ceftriaxone Sodium 1 gm/ 100 mls @ 200 mls/hr 05/21/19 06:00 05/24/19 04:52 Sodium Chloride IVPB 100 mls 0600 NEELAM Administration Mometasone Furoate/Formoterol Fumar 2 puff 05/21/19 06:30 05/24/19 06:46 Dulera 200 Mcg/5 Mcg Inhaler INH 2 puff BID-RT NEELAM Administration Montelukast Sodium 10 mg 05/20/19 21:00 05/23/19 19:50 Singulair PO 10 mg HS NEELAM Administration Pantoprazole Sodium 40 mg 05/22/19 21:00 05/23/19 19:50 Protonix PO 40 mg 2100 NEELAM Administration Potassium Chloride 40 meq 05/23/19 09:00 05/23/19 19:50 K-Dur PO 40 meq BID NEELAM Administration Prednisone 40 mg 05/22/19 08:00 05/23/19 14:07 Prednisone PO 40 mg QAM-WM NEELAM Administration Rosuvastatin Calcium 20 mg 05/21/19 09:00 05/23/19 14:08 Crestor PO 20 mg DAILY NEELAM Administration Sodium Chloride 10 ml 05/21/19 21:00 05/23/19 20:56 Flush - Normal Saline IVF 10 ml Q12HR NEELAM Administration - Exam General Appearance: NAD, awake alert General - other findings: morbidly obese Eye: anicteric sclera ENT: normocephalic atraumatic Neck: no JVD Heart: RRR, no murmur, no gallops, no rubs Respiratory: CTAB, no wheezes, no rales, no ronchi Respiratory - other findings: inspiratory wheezes Gastrointestinal: soft, non-tender, non-distended Extremities: no cyanosis, no clubbing, no edema Skin: normal turgor, no lesions, no rashes Neurological: cranial nerve grossly intact, normal sensation to touch, no focal deficits, no new deficit Hosp A/P - Plan ECHO: EF 60-65% with diastolic dysfunction. Trace MR, mildTR This is a 74 year old female with past medical history of diastolic CHF, asthma , hyperlipidemia who presented to the ER with generalized weakness, cough, dysuria #Hypokalemia- improved #Contraction alkalosis - sec to lasix -potassium improved to 3.5. COntinue to monitor #Abd bloating- possibly gastroparesis - gastric emptying study normal #Acute hypoxic respiratory insufficiency secondary to left sided pneumonia #Asbestosis - chest x ray showed patchy infiltrate in the left side and pleural plaques bilaterally. - on IV ceftriaxone and doxycycline due to QT prolongation - resp viral panel normal - continue prednisone and mucinex E coli UTI - on ceftriaxone IV Depression - will add zoloft 25 mg daily DOLORES on CKD- likely from lasix - creatinine stable - nephrology following Elevated troponin - likely from elevated creatinine - ECHO Showed diastolic dysfunction, trace MR #Hyponatremia- resolved Dispo: possibly d/c in am
[2019-05-24 07:58] LABS: Hemoglobin 11.5 g/dL (12.0-16.0); Mean Corpuscular HGB CONC 33.9 g/dL (32.0-36.0); Mean Corpuscular Hemoglobin 37.3 pg (27.0-31.0); Mean Platelet Volume 7.9 fL (7.4-10.4); Platelet Count 238 thou/uL (130-400); RBC Distribution Width 11.9 % (11.5-14.5); Red Blood Cell (RBC) Count 3.07 mill/uL (4.20-5.40); White Blood Cell (WBC) Count 6.8 thou/uL (4.8-10.8)
[2019-05-24 08:17] LABS: Anion Gap 12 mmol/L (10-20); BUN (Urea Nitrogen) 13 mg/dL (9.8-20.1); Calc. Creatinine Clearance 82 mL/min (70-130); Calcium 9.4 mg/dL (7.8-10.44); Carbon Dioxide 33 mmol/L (23-31); Chloride 98 mmol/L (98-107); Estimated GFR-MDRD 46; Glucose 144 mg/dL (83-110); Potassium 4.7 mmol/L (3.5-5.1); Sodium 138 mmol/L (136-145)
[2019-05-24] MEDS: guaiFENesin ER 600 MG TAB PO SCH ×2 (09:29→20:54)
[2019-05-24] MEDS: Rosuvastatin 20 MG TAB PO SCH (09:29)
[2019-05-24] MEDS ORDERED: AcetaZOLAMIDE 250 MG TAB PO SCH (09:30)
[2019-05-24] MEDS: FLUoxetine HCl 20 MG CAP PO SCH (09:30)
[2019-05-24] MEDS: Aspirin 81 mg Enteric Coated Tablet PO SCH (09:30)
[2019-05-24] MEDS: predniSONE 20 MG TAB PO SCH (09:30)
[2019-05-24] MEDS: Fish Oil 1,000 MG CAP PO SCH (09:30)
[2019-05-24] MEDS: Doxycycline 100 MG CAP PO SCH ×2 (09:31→20:55)
[2019-05-24] MEDS: Heparin 5,000 UNITS/ML VIAL SC SCH ×3 (09:37→20:54)
--- NOTE | 2019-05-24 10:36 | PRG ---
DATE OF SERVICE: SUBJECTIVE: Patient was seen and examined at bedside and overnight events noted. Patient denies any shortness of breath or chest pain or palpitation. No history of nausea or vomiting or diarrhea or fever or chills or cramps. OBJECTIVE: General: This is a well-built female, in no acute distress. Vital Signs: Temperature 98.7, pulse 94, respiratory rate 16, blood pressure 116/55. HEENT: Atraumatic, normocephalic. Oral mucosa is moist. Neck: Supple. Cardiovascular: S1, S2 heard. Rate and rhythm regular. Respiratory: Clear to auscultation. Gastrointestinal: Abdomen is soft. Musculoskeletal: No tenderness. No edema. Dermatologic: No skin rash. Neurologic: Alert and awake and oriented x3. No focal neurologic deficits. Moving all the extremities. Psychiatric: Mood and affect normal. LABORATORY DATA: Potassium 4.7, BUN is 13, creatinine is 1.1. ASSESSMENT AND PLAN: 1. Hypokalemia, much better. We will reduce potassium supplements to 40 mEq p.o. daily. 2. Metabolic alkalosis, persistent. No ABG available. We will give a dose of Diamox today. Not on any diuretics. 3. Hypophosphatemia. 4. Edema. 5. Cardiorenal syndrome. 6. Hypertension. 7. Acute kidney injury, better. 8. We will reduce the potassium dose. We will give a dose of Diamox, edema control. Advised limit fluid intake. Okay to start low dose of Lasix as tolerated. Consider checking an ABG. We will follow. Job ID: [id number]
[2019-05-24 11:16] LABS: Actual Bicarbonate (HCO3a) 33.2 mEq/L (22-28); Analyzer IN Cardio OR; Base Excess (BEa) 10.4 mEq/L (-2.0 to +3.0); CO2 Tension 37.2 mmHg (35.0-45.0); Calcium, Ionized 1.16 mmol/L (1.12-1.30); Carboxyhemoglobin (COHb) 0.7 gm% (0.0-3.0); Hemoglobin (Hb) 11.6 g/dL (12.0-16.0); O2 Tension (PaO2) 62.9 mmHg (> 70.0); Potassium - ABG Lab 4.46 mmol/L (3.70-5.30)
[2019-05-24 11:17] LABS: Puncture Site RR; pH, Arterial 7.57 (7.35-7.45)
[2019-05-24] MEDS: Benzonatate 100 MG CAP PO SCH ×3 (13:06→20:55)
--- NOTE | 2019-05-24 14:58 | CT ---
CT CHEST WITHOUT CONTRAST: Date: 05/24/2019 HISTORY: 74-year-old female with persistent cough. FINDINGS: Absence of IV contrast reduces the sensitivity of exam, particularly for evaluation of mediastinal, h ilar, and vascular structures. There are vascular calcifications without evidence of aneurysmal dilatation of the thoracic aorta. No pleural or pericardial effusions are seen. There are calcified pleural plaques bilaterally. No pneum othoraces, focal areas of consolidation, lung nodules, or masses are seen. There are degenerative jamie nges in the spine. Upper abdominal tomograms demonstrate changes of cholecystectomy. IMPRESSION: Calcified pleural plaques. Is there a history of exposure to asbestos? POS: [facility]
--- NOTE | 2019-05-24 18:39 | PDOC.HOSPP ---
- Subjective Encounter Date: 05/24/19 Encounter Time: 09:00 Subjective: The patient is coughing significantly this morning. Improved after receiving tessalon pearls. Patient requesting home health services on discharge. cT notes asbestosis. 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 She received one dose of diamox by nephrology - Objective Vital Signs & Weight: Vital Signs (12 hours) Temp Pulse Pulse Pulse Resp BP BP 05/24/19 15:49 97.9 F 95 19 05/24/19 15:13 95 90 122/58 L 121/55 L 05/24/19 14:47 81 16 05/24/19 11:37 98.8 F 86 22 H 05/24/19 10:26 93 16 05/24/19 08:00 98.7 F 94 16 05/24/19 06:49 79 16 05/24/19 06:46 79 16 BP Pulse Ox 05/24/19 15:49 122/58 L 94 L 05/24/19 15:13 05/24/19 14:47 95 05/24/19 11:37 135/63 93 L 05/24/19 10:26 97 05/24/19 08:00 127/59 L 96 05/24/19 06:49 93 L 05/24/19 06:46 93 L Weight Admit Weight 266 lb Weight 267 lb 4.8 oz I&O: 05/23/19 05/24/19 05/25/19 06:59 06:59 06:59 Intake Total 1100 1300 Output Total 500 1100 Balance 600 200 Result Diagrams: 05/24/19 07:44 05/24/19 07:44 Hospitalist ROS - Review of Systems Constitutional: denies: fever, chills ENT: denies: mouth pain - Medication Medications: Active Medications Generic Name Dose Route Start Last Admin Trade Name Freq PRN Reason Stop Dose Admin Albuterol/Ipratropium 3 ml 05/21/19 14:30 05/24/19 14:47 Duoneb EZPAP 3 ml [id number] NEELAM Administration Aspirin 81 mg 05/21/19 09:00 05/24/19 09:30 Ecotrin PO 81 mg DAILY NEELAM Administration Benzonatate 100 mg 05/24/19 15:00 05/24/19 17:14 Tessalon PO Not Given TID NEELAM Doxycycline Hyclate 100 mg 05/21/19 21:00 05/24/19 09:31 Vibramycin PO 100 mg BID NEELAM Administration Fish Oil 1,000 mg 05/21/19 09:00 05/24/19 09:30 Fish Oil PO 1,000 mg DAILY ENELAM Administration Fluoxetine HCl 40 mg 05/21/19 09:00 05/24/19 09:30 Prozac PO 40 mg DAILY NEELAM Administration Guaifenesin 600 mg 05/21/19 21:00 05/24/19 09:29 Mucinex PO 600 mg Q12HR NEELAM Administration Heparin Sodium (Porcine) 5,000 units 05/22/19 15:00 05/24/19 17:14 Heparin SC 5,000 units TID [facility] Administration Ceftriaxone Sodium 1 gm/ 100 mls @ 200 mls/hr 05/21/19 06:00 05/24/19 04:52 Sodium Chloride IVPB 100 mls 0600 NEELAM Administration Mometasone Furoate/Formoterol Fumar 2 puff 05/21/19 06:30 05/24/19 06:46 Dulera 200 Mcg/5 Mcg Inhaler INH 2 puff BID-RT NEEALM Administration Montelukast Sodium 10 mg 05/20/19 21:00 05/23/19 19:50 Singulair PO 10 mg HS NEELAM Administration Pantoprazole Sodium 40 mg 05/22/19 21:00 05/23/19 19:50 Protonix PO 40 mg 2100 NEELAM Administration Prednisone 40 mg 05/22/19 08:00 05/24/19 09:30 Prednisone PO 40 mg QAM-WM NEELAM Administration Rosuvastatin Calcium 20 mg 05/21/19 09:00 05/24/19 09:29 Crestor PO 20 mg DAILY NEELAM Administration Sodium Chloride 10 ml 05/21/19 21:00 05/24/19 09:31 Flush - Normal Saline IVF 10 ml Q12HR NEELAM Administration - Exam General Appearance: NAD, awake alert Eye: PERRL, anicteric sclera ENT: normocephalic atraumatic, no oropharyngeal lesions Neck: supple, no JVD Heart: RRR, no murmur, no gallops, no rubs Respiratory: CTAB, no wheezes, no rales, no ronchi, rales Gastrointestinal: soft, non-tender, non-distended Extremities: no cyanosis, no clubbing, no edema Hosp A/P - Plan ECHO: EF 60-65% with diastolic dysfunction. Trace MR, mildTR This is a 74 year old female with past medical history of diastolic CHF, asthma , hyperlipidemia who presented to the ER with generalized weakness, cough, dysuria #Acute hypoxic respiratory insufficiency secondary to left sided pneumonia #Asbestosis - chest x ray showed patchy infiltrate in the left side and pleural plaques bilaterally. - on IV ceftriaxone and doxycycline due to QT prolongation. Switch to oral cefdinir - resp viral panel normal - continue prednisone and mucinex - continue standing tessalon pearls #Hypokalemia- improved #Contraction alkalosis - sec to lasix -potassium improved to 3.5. COntinue to monitor #Abd bloating-resolved E coli UTI - on ceftriaxone, switched to cefdinir Depression -continue paroxetine 40 mg daily DOLORES on CKD- likely from lasix - resolved - f/u with nephro as an outpatient Elevated troponin - likely from elevated creatinine - ECHO Showed diastolic dysfunction, trace MR #Hyponatremia- resolved Dispo: possibly d/c in am
[2019-05-24] MEDS: Cefdinir 300 MG CAP PO SCH (20:54)
[2019-05-24] MEDS: AcetaZOLAMIDE 250 MG TAB PO SCH (20:55)
[2019-05-24] MEDS: Montelukast Sodium 10 mg Tablet PO SCH (20:55)
[2019-05-24] MEDS: Pantoprazole 40 MG GRANULES PACKET PO SCH (20:55)
[2019-05-25 04:39] LABS: Hemoglobin 10.6 g/dL (12.0-16.0); Mean Corpuscular HGB CONC 33.5 g/dL (32.0-36.0); Mean Corpuscular Hemoglobin 36.9 pg (27.0-31.0); Mean Platelet Volume 8.4 fL (7.4-10.4); Platelet Count 229 thou/uL (130-400); RBC Distribution Width 11.9 % (11.5-14.5); Red Blood Cell (RBC) Count 2.87 mill/uL (4.20-5.40); White Blood Cell (WBC) Count 7.8 thou/uL (4.8-10.8)
[2019-05-25 05:08] LABS: Anion Gap 10 mmol/L (10-20); BUN (Urea Nitrogen) 15 mg/dL (9.8-20.1); Calc. Creatinine Clearance 84 mL/min (70-130); Calcium 9.3 mg/dL (7.8-10.44); Carbon Dioxide 31 mmol/L (23-31); Chloride 100 mmol/L (98-107); Estimated GFR-MDRD 47; Glucose 127 mg/dL (83-110); Potassium 3.7 mmol/L (3.5-5.1); Sodium 137 mmol/L (136-145)
[2019-05-25] MEDS: Potassium Chloride 20 MEQ TAB PO SCH (07:54)
[2019-05-25] MEDS: Mometasone/Formoterol 120 PUFF INHALER INH SCH (08:36)
[2019-05-25] MEDS: predniSONE 20 MG TAB PO SCH (08:42)
[2019-05-25] MEDS: AcetaZOLAMIDE 250 MG TAB PO SCH (08:44)
[2019-05-25] MEDS: Rosuvastatin 20 MG TAB PO SCH (08:44)
[2019-05-25] MEDS: Doxycycline 100 MG CAP PO SCH (08:44)
[2019-05-25] MEDS: Benzonatate 100 MG CAP PO SCH (08:45)
[2019-05-25] MEDS: guaiFENesin ER 600 MG TAB PO SCH (08:45)
[2019-05-25] MEDS: FLUoxetine HCl 20 MG CAP PO SCH (08:45)
[2019-05-25] MEDS: Heparin 5,000 UNITS/ML VIAL SC SCH (08:46)
[2019-05-25] MEDS: Fish Oil 1,000 MG CAP PO SCH (08:46)
[2019-05-25] MEDS: Cefdinir 300 MG CAP PO SCH (08:46)
[2019-05-25] MEDS: Aspirin 81 mg Enteric Coated Tablet PO SCH (08:46)
[2019-05-25] MEDS ORDERED: Potassium Chloride 20 MEQ TAB PO SCH (09:00)
[2019-05-25 09:43] LABS: Phosphorus 4.4 mg/dL (2.3-4.7)
[2019-05-25 11:44] VITALS: BP 125/60; TEMP 98.2
--- NOTE | 2019-05-25 17:47 | PRG ---
DATE OF SERVICE: 05/25/2019 SUBJECTIVE: Patient was seen and examined at bedside and overnight events noted. Patient denies any shortness of breath or chest pain or palpitation. No history of nausea or vomiting or diarrhea or fever or chills or cramps. OBJECTIVE: GENERAL: This is an obese female, in no apparent distress. VITAL SIGNS: Temperature 98.2, heart rate 80. Respiratory rate 19. Blood pressure 124/60. HEENT: Atraumatic, normocephalic. Oral mucosa is moist NECK: Supple. CARDIOVASCULAR: S1, S2 heard. Rate and rhythm regular. RESPIRATORY: Clear to auscultation. GASTROINTESTINAL: Abdomen is soft. MUSCULOSKELETAL: No tenderness. No edema. DERMATOLOGIC: No skin rash. NEUROLOGIC: Alert and awake and oriented X3. No focal neurologic deficits. Moving all the extremities. PSYCHIATRIC: Mood and affect normal. LABORATORY DATA: Potassium 3.7, BUN is 15, and creatinine is 1.1. ASSESSMENT AND PLAN: 1. Hypokalemia, better. 2. Acute kidney injury, stable. 3. Metabolic alkalosis. 4. Edema. 5. Cardiorenal syndrome. 6. Hypertension. 7. Acute kidney injury, stable. The patient needs close monitoring as outpatient, hold of diuretics. Limit fluid intake and salt intake and follow up with the clinic in 1 week. Job ID: [id number]
--- NOTE | 2019-05-25 20:18 | DIS ---
DATE OF ADMISSION: 05/20/2019 DATE OF DISCHARGE: 05/25/2019 DISCHARGE DIAGNOSES: Acute hypoxic respiratory failure secondary to pneumonia versus asbestosis, hypokalemia, contraction alkalosis, acute kidney injury, Escherichia coli urinary tract infection, elevated troponin, hyponatremia. CONSULTATIONS: Dr. Kam Hood with Nephrology. BRIEF HISTORY OF PRESENT ILLNESS: This is a 74-year-old female with past medical history of asthma, diastolic CHF, hypertension, who presented to the emergency room with generalized weakness. The patient reported that she was barely able to walk and was losing strength and had no appetite. She has been taking Lasix daily for fluid retention. She also had reported dysuria and urgency for the past one week, as well as a dry cough. Upon arrival to the emergency room, the patient did have nonspecific ST and T-wave abnormality. She had a chest x-ray that showed possible infiltrate in the left mid field. She was given ceftriaxone and azithromycin empirically and admitted for further workup. HOSPITAL COURSE: Acute hypoxic respiratory failure secondary to left-sided pneumonia: The patient was initially started on IV ceftriaxone and azithromycin ; however, due to QT prolongation, she was switched to ceftriaxone and doxycycline. She had a respiratory viral panel checked, which was negative for influenza. The patient was requiring 2 L of oxygen and was eventually being weaned down to room air. She did have a CT scan of her chest due to persistent cough, which showed findings related to asbestosis. 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 She was started on Tessalon Perles and Protonix due to persistent cough with improvement. She was advised to follow up with lung doctor as an outpatient for possible asbestosis. She will be discharged with 2 more days of antibiotics to complete a 7-day course. Acute kidney injury/hypokalemia/hyponatremia/contraction alkalosis: The patient presented with a creatinine of 1.57 on admission. She also had a potassium of 1.9 on admission. Her Lasix was held and she was given IV fluids with improvement in her renal function. She did have aggressive replacement of her potassium, however, continued to have persistent hypokalemia to 2.6. Nephrology was consulted and she had a urine potassium of 43 and urine creatinine of 105.49. She was started on potassium supplements with eventual improvement in her potassium to 3.7 on the day of discharge. Her creatinine is improved to 1.13 on the day of discharge. She will follow up with Dr. Kam Hood with repeat potassium and renal function in 1 to 2 weeks. Anemia: The patient had a hemoglobin of 10.6 on the day of discharge. This could be to iatrogenic lab draws since it was normal on admission. TSH, vitamin B12, and folate levels are pending at the time of discharge. The patient can have this followed up with her PCP. E coli UTI: The patient did report some dysuria and urgency on admission. Urine culture was positive for E coli. Blood cultures were negative. The patient received 5 days of ceftriaxone and was switched to cefdinir, she will take this for 2 more days to complete a 7-day course of antibiotics. Abdominal bloating: The patient did report some early satiety with meals. She had had a gastric emptying study which did not show any evidence of gastroparesis. This resolved on the day of discharge. Depression: The patient according to family members has no motivation to get out of bed. She is on paroxetine 40 mg daily and her mood seemed to improve during her hospital course. This can be adjusted further as an outpatient. She denies any suicidal ideation. Elevated troponin: The patient had a troponin level of 0.069. She had no chest pain. She had an echocardiogram done, which showed diastolic dysfunction with no wall motion abnormalities. This may be secondary to her renal dysfunction. The patient should have a stress test as an outpatient for further workup. Physical deconditioning: The patient uses a walker at home. She was very weak when she came into the hospital. She was seen by Physical Therapy, who stated that she did not require much assistance with a walker. Per family request, she will be set up with home PT and home nursing because the patient does not take care of herself well. DISCHARGE PHYSICAL EXAMINATION: VITAL SIGNS: Temperature 97.7, heart rate 79, respiratory rate 16, oxygen saturation 97% on room air, blood pressure 125/55. GENERAL: The patient is morbidly obese. She is in no acute distress. She does have intermittent dry cough on deep inspiration. LUNGS: Clear to auscultation bilaterally. ABDOMEN: Positive bowel sounds, soft, nontender, nondistended. EXTREMITIES: No pitting edema. LABORATORY DATA: CBC on 05/24: hemoglobin 10.6, hematocrit 31.6. BMP on 05/24: creatinine 1.13. Hemoglobin A1c :6.0. Phosphorus :4.4. Lactate :1.3. AST: 25. ALT :14. Alkaline phosphatase :79. UA on : turbid urine with 70 protein, 250 leukocyte esterase, greater than 50 white blood cells. Urine random chloride: 20. Urine creatinine :105.49. Urine potassium: 43.4. PERTINENT IMAGING: Echo on 05/20: EF 60% to 65% with diastolic dysfunction. Mildly enlarged right atrium. Mild MR. Trace TR. Chest x-ray on : patchy infiltrate in the left mid lung field. CT abdomen on : fat containing right indirect inguinal hernia with a 2.9 cm neck with mild vascular congestive changes. Moderate diverticular disease without active current inflammation. No hydronephrosis. Few posterior calcified pleural plaques seen with asbestos related pleural disease. Chest x-ray on 05/21: previously described ill-defined nodular densities in the left mid lung zone have resolved, but there is a new nodular density in the left upper lung zone which could be related to focal area of pneumonitis. Pulmonary nodule cannot be excluded. Gastric emptying study on 05/22: shows a normal exam. Chest CT on 05/23: calcified pleural plaques. No consolidation. DISCHARGE CONDITION: Stable. ACTIVITY: As tolerated. DIET: Heart healthy diet. DISCHARGE MEDICATIONS: New prescriptions: 1. Tessalon Perles 100 mg p.o. t.i.d. for 21 capsules. 2. Cefdinir 300 mg p.o. b.i.d. for 2 more days. 3. Doxycycline 100 mg p.o. b.i.d. for 2 more days. 4. Protonix 40 mg p.o. daily. All other home medications were resumed. DISCONTINUED MEDICATIONS: Lasix. DISCHARGE INSTRUCTIONS: The patient should follow up with her PCP in a week. She should have repeat renal function and potassium levels with Dr. Hood in 1 week. She should follow up with Dr. Mckenna, lung doctor for evaluation of asbestosis. Job ID: [id number] [facility]
[2019-05-27 11:38] LABS: Renin Activity 0.888 ng/mL/hr (0.167-5.380)
== END 2019-05-25 13:24 | disposition home health service (06) | DRG 193 ==
LOC: ERS 10:25 → 2NO 14:23
PROVIDERS: ADMIT Pediatrics; ATTEND Internal Medicine
DX: J18.9 Pneumonia, unspecified organism (principal); J96.01 Acute respiratory failure with hypoxia; N17.9 Acute kidney failure, unspecified; N39.0 Urinary tract infection, site not specified; E87.1 Hypo-osmolality and hyponatremia; I50.32 Chronic diastolic (congestive) heart failure; E87.3 Alkalosis; I13.0 Hypertensive heart and chronic kidney disease with heart failure and stage 1 through stage 4 chronic kidney disease, or unspecified chronic kidney disease; J92.0 Pleural plaque with presence of asbestos; E87.6 Hypokalemia; B96.20 Unspecified Escherichia coli [E. coli] as the cause of diseases classified elsewhere; R79.9 Abnormal finding of blood chemistry, unspecified; F32.9 Major depressive disorder, single episode, unspecified; E86.0 Dehydration; Z90.49 Acquired absence of other specified parts of digestive tract; Z90.710 Acquired absence of both cervix and uterus; R40.2362 Coma scale, best motor response, obeys commands, at arrival to emergency department; R40.2142 Coma scale, eyes open, spontaneous, at arrival to emergency department; R40.2252 Coma scale, best verbal response, oriented, at arrival to emergency department; E78.5 Hyperlipidemia, unspecified; Z88.2 Allergy status to sulfonamides; E83.39 Other disorders of phosphorus metabolism; N18.9 Chronic kidney disease, unspecified; R14.0 Abdominal distension (gaseous); I25.10 Atherosclerotic heart disease of native coronary artery without angina pectoris; F17.210 Nicotine dependence, cigarettes, uncomplicated; J61 Pneumoconiosis due to asbestos and other mineral fibers
CPT/HCPCS: 36415; 36416; 51701; 71045; 71250; 74176; 78264; 80048; 80053; 81003; 81015; 82088; 82436; 82553; 82570; 82805; 83036; 83605; 83690; 83735; 83880; 84100; 84133; 84244; 84484; 85025; 85027; 87040; 87077; 87086; 87186; 87633; 93005; 93010; 93306; 94640; 96361; 96365; 96366; 96367; 96368; A4353; A9541; J0456; J0696; J1644; J3475; J3480; J3490; J7512; J7620

== ENCOUNTER 2019-09-29 09:24 | Outpatient (CLI) | payer MEDICARE, MEDICAID ==
--- NOTE | 2019-09-29 11:46 | MMO ---
Bilateral MAMMO Bilat Screen [id number]. CLINICAL HISTORY: Patient is 74 years old and is seen for screening. The patient has no family history of breast cancer. The patient has no personal history of cancer. VIEWS: The views performed were: bilateral craniocaudal with tomosynthesis and bilateral mediolateral oblique with tomosynthesis. FILMS COMPARED: The present examination has been compared to prior imaging studies performed at [facility] on 05/17/2015, 11/10/2016, 12/28/2017 and 09/26/2018. This study has been interpreted with the assistance of computer-aided detection. MAMMOGRAM FINDINGS: There are scattered fibroglandular densities. There are no suspicious masses, suspicious calcifications, or new areas of architectural distortion. IMPRESSION: THERE IS NO MAMMOGRAPHIC EVIDENCE OF MALIGNANCY. A ROUTINE FOLLOW-UP MAMMOGRAM IN 1 YEAR IS RECOMMENDED. THE RESULTS OF THIS EXAM WERE SENT TO THE PATIENT. ACR BI-RADS Category 1 - Negative MAMMOGRAPHY NOTE: 1. A negative mammogram report should not delay a biopsy if a dominant of clinically suspicious mass is present. 2. Approximately 10% to 15% of breast cancers are not detected by mammography. 3. Adenosis and dense breasts may obscure an underlying neoplasm. Reported by: JAN MEJIA MD Electonically Signed: [id number]
== END 2019-09-29 09:25 | disposition home or self-care (01) ==
LOC: BICMAMMO 09:24
PROVIDERS: ATTEND Nurse Practitioner Family
DX: Z12.31 Encounter for screening mammogram for malignant neoplasm of breast (principal)
CPT/HCPCS: 77063; 77067

== ENCOUNTER 2019-10-16 08:47 | Outpatient (CLI) | payer MEDICARE, MEDICAID ==
--- NOTE | 2019-10-16 09:02 | RAD ---
EXAM: Chest 2 views: HISTORY: Dyspnea COMPARISON: 08/04/2018 FINDINGS: There is a normal-sized cardiomediastinal silhouette. Atherosclerotic calcifications are seen in the aorta. There is no evidence of consolidation, mass, or pleural effusion. The bones are unremarkable. IMPRESSION: No evidence of acute cardiopulmonary disease
== END 2019-10-16 08:48 | disposition home or self-care (01) ==
LOC: BICRAD 08:47
PROVIDERS: ATTEND Internal Medicine Critical Care Medicine
DX: R06.00 Dyspnea, unspecified (principal)
CPT/HCPCS: 71046

== ENCOUNTER 2020-02-07 10:56 | Outpatient (CLI) | payer MEDICARE, MEDICAID ==
--- NOTE | 2020-02-07 11:42 | RAD ---
TWO VIEW CHEST: INDICATION: Chronic diastolic heart failure. COMPARISON: 10/16/2019. FINDINGS: Heart size is within normal range. Mild vascular and interstitial engorgement stable from prior exam . No focal infiltrate or significant effusion. Aortic calcification again noted. Osseous structure s unremarkable. IMPRESSION: Stable chest findings. POS: [facility]
== END 2020-02-07 10:57 | disposition home or self-care (01) ==
LOC: BICRAD 10:56
PROVIDERS: ATTEND Nurse Practitioner Family
DX: I50.32 Chronic diastolic (congestive) heart failure (principal)
CPT/HCPCS: 36415; 71046; 80048; 83880

== ENCOUNTER 2020-10-01 09:59 | Outpatient (CLI) | payer MEDICARE, MEDICAID | END 2020-10-01 10:00 | disposition home or self-care (01) | LOC: BICMAMMO 09:59 | PROVIDERS: ATTEND Nurse Practitioner Family | DX: Z12.31 Encounter for screening mammogram for malignant neoplasm of breast (principal) | CPT/HCPCS: 77063; 77067 ==

== ENCOUNTER 2021-07-06 11:54 | Inpatient (IN) | payer MEDICARE, MEDICAID ==
[2021-07-06 12:36] LABS: Hemoglobin 10.7 g/dL (12.0-16.0); Mean Corpuscular HGB CONC 33.4 g/dL (32.0-36.0); Mean Corpuscular Hemoglobin 35.4 pg (27.0-31.0); Mean Platelet Volume 6.7 fL (7.4-10.4); Platelet Count 240 thou/uL (130-400); RBC Distribution Width 12.7 % (11.5-14.5); Red Blood Cell (RBC) Count 3.02 mill/uL (4.20-5.40); White Blood Cell (WBC) Count 5.2 thou/uL (4.8-10.8)
[2021-07-06 12:42] LABS: #Lymphocytes 1.1 thou/uL (1.20-3.40); #Monocytes 0.5 thou/uL (0.11-0.59); #Neutrophils 3.6 thou/uL (1.40-6.50); %Basophils 0.4 % (0.0-1.0); %Eosinophils 0.3 % (0.0-10.0); %Lymphocytes 20.9 % (21.0-51.0); %Monocytes 10.3 % (0.0-10.0); %Neutrophils 68.1 % (42.0-75.0)
[2021-07-06 12:45] LABS: Prothrombin Time 13.6 sec (12.0-14.7)
[2021-07-06 12:46] LABS: PTT 30.6 sec (22.9-36.1)
[2021-07-06 12:53] LABS: MDiff Complete? YES; Macrocytosis SLIGHT = 6-15 cells (100X) (0-5/hpf); Platelet Morphology Comment Appears Adequate; Polychromasia SLIGHT = 2-3 cells (100X) (0-2/hpf)
[2021-07-06 12:54] LABS: ALT (SGPT) 19 U/L (8-55); AST (SGOT) 50 U/L (5-34); Albumin 2.7 g/dL (3.4-4.8); Alkaline Phosphatase 192 U/L (40-110); Anion Gap 19 mmol/L (10-20); BUN (Urea Nitrogen) 14 mg/dL (9.8-20.1); Bilirubin, Total 0.8 mg/dL (0.2-1.2); Calc. Creatinine Clearance 0 mL/min (70-130); Calcium 8.4 mg/dL (7.8-10.44); Carbon Dioxide 22 mmol/L (23-31); Chloride 99 mmol/L (98-107); Globulin 3.2 g/dL (2.4-3.5); Glucose 83 mg/dL (83-110); Lipase 10 U/L (8-78); Magnesium 2.2 mg/dL (1.6-2.6); Potassium 3.5 mmol/L (3.5-5.1); Protein, Total 5.9 g/dL (5.8-8.1); Sodium 136 mmol/L (136-145)
[2021-07-06] MEDS ORDERED: Morphine 4 MG/ML VIAL ONE (13:12)
[2021-07-06] MEDS ORDERED: Lidocaine 4% Cream 5 GM TUBE w/ Tegaderm ONE (13:13)
[2021-07-06] MEDS ORDERED: Ondansetron PF 4 MG/2 ML Vial ONE (13:13)
[2021-07-06] MEDS ORDERED: Silver Nitrate Application 1 EACH ONE (13:14)
[2021-07-06] MEDS ORDERED: Aspirin Chewable 81 MG TAB ONE (13:41)
[2021-07-06] MEDS ORDERED: Acetaminophen 650 MG Suppository PR PRN (13:56)
[2021-07-06] MEDS ORDERED: Ondansetron PF 4 MG/2 ML Vial IVP PRN (13:56)
[2021-07-06] MEDS ORDERED: cefTRIAXone\\ROCEPHIN 1 GM VIAL ONE (13:56)
[2021-07-06] MEDS ORDERED: Ondansetron ODT 4 MG TAB PO PRN (13:56)
[2021-07-06] MEDS ORDERED: Electrolyte Replacement Protocol 1 EACH FS PRN (14:15)
[2021-07-06] MEDS ORDERED: Bacitracin 1 PK ONE (15:17)
[2021-07-06 15:42] LABS: Lactic Acid 2.1 mmol/L (0.5-2.2)
[2021-07-06 15:55] LABS: Troponin I 0.015 ng/mL (< 0.028)
[2021-07-06 17:02] LABS: Iron 130 ug/dL (50-170); Iron Binding Capacity, Total 186 mcg/dL (265-497)
[2021-07-06 17:26] LABS: Ferritin 39.53 ng/mL (10-291)
[2021-07-06] MEDS ORDERED: Potassium Chloride 20 MEQ TAB PO SCH (18:00)
[2021-07-06 19:12] LABS: Troponin I 0.015 ng/mL (< 0.028)
[2021-07-06] MEDS: Acetaminophen 325 MG TAB PO PRN (21:32)
[2021-07-06] MEDS: Sodium Chloride 0.9% 1,000 ML IV SCH (23:26)
[2021-07-07] MEDS: Sodium Chloride 0.9% 1,000 ML IV SCH ×3 (01:07→20:14)
[2021-07-07 04:32] LABS: #Lymphocytes 1.6 thou/uL (1.20-3.40); #Monocytes 0.5 thou/uL (0.11-0.59); #Neutrophils 1.8 thou/uL (1.40-6.50); %Basophils 0.8 % (0.0-1.0); %Eosinophils 0.9 % (0.0-10.0); %Lymphocytes 40.7 % (21.0-51.0); %Monocytes 11.8 % (0.0-10.0); %Neutrophils 45.8 % (42.0-75.0); Hemoglobin 8.8 g/dL (12.0-16.0); Mean Corpuscular HGB CONC 35.4 g/dL (32.0-36.0); Mean Corpuscular Hemoglobin 37.7 pg (27.0-31.0); Mean Platelet Volume 6.8 fL (7.4-10.4); Platelet Count 190 thou/uL (130-400); RBC Distribution Width 12.7 % (11.5-14.5); Red Blood Cell (RBC) Count 2.34 mill/uL (4.20-5.40); White Blood Cell (WBC) Count 3.9 thou/uL (4.8-10.8)
[2021-07-07 05:01] LABS: Anion Gap 10 mmol/L (10-20); BUN (Urea Nitrogen) 11 mg/dL (9.8-20.1); Calc. Creatinine Clearance 42 mL/min (70-130); Calcium 7.6 mg/dL (7.8-10.44); Carbon Dioxide 26 mmol/L (23-31); Chloride 107 mmol/L (98-107); Glucose 75 mg/dL (83-110); Potassium 3.6 mmol/L (3.5-5.1); Sodium 139 mmol/L (136-145)
[2021-07-07] MEDS: Acetaminophen 325 MG TAB PO PRN ×2 (08:24→20:12)
[2021-07-07] MEDS ORDERED: Enoxaparin Sodium 40 MG/0.4 ML SYRINGE SC SCH (09:00)
[2021-07-07] MEDS: Iron, Sodium Ferric Gluconate 250 MG in Sodium Chloride 0.9% 250 ML 250 ML IVPB SCH ×2 (12:44→21:03)
[2021-07-07 12:59] LABS: SARS-CoV-2 PCR by NAA Not Detected (NotDetected)
[2021-07-07] MEDS ORDERED: traMADol HCl 50 MG TAB PO SCH (21:49)
[2021-07-08] MEDS: Sodium Chloride 0.9% 1,000 ML IV SCH (01:46)
[2021-07-08 04:24] LABS: #Lymphocytes 0.5 thou/uL (1.20-3.40); #Monocytes 0.7 thou/uL (0.11-0.59); %Basophils 0.2 % (0.0-1.0); %Eosinophils 0.4 % (0.0-10.0); %Lymphocytes 7.5 % (21.0-51.0); %Monocytes 11.8 % (0.0-10.0); %Neutrophils 80.2 % (42.0-75.0); Hemoglobin 8.2 g/dL (12.0-16.0); Mean Corpuscular HGB CONC 33.1 g/dL (32.0-36.0); Mean Corpuscular Hemoglobin 35.4 pg (27.0-31.0); Mean Platelet Volume 6.9 fL (7.4-10.4); Platelet Count 175 thou/uL (130-400); Red Blood Cell (RBC) Count 2.31 mill/uL (4.20-5.40); White Blood Cell (WBC) Count 6.2 thou/uL (4.8-10.8)
[2021-07-08 04:45] LABS: Anion Gap 7 mmol/L (10-20); BUN (Urea Nitrogen) 9 mg/dL (9.8-20.1); Calc. Creatinine Clearance 48 mL/min (70-130); Calcium 7.5 mg/dL (7.8-10.44); Carbon Dioxide 24 mmol/L (23-31); Chloride 109 mmol/L (98-107); Glucose 114 mg/dL (83-110); Potassium 3.4 mmol/L (3.5-5.1); Sodium 137 mmol/L (136-145)
[2021-07-08] MEDS ORDERED: Potassium Chloride 20 MEQ TAB PO SCH (08:00)
[2021-07-08] MEDS: Acetaminophen 325 MG TAB PO PRN ×2 (09:47→20:00)
[2021-07-08] MEDS: Bacitracin Zinc Ointment 30 gm TUBE TOP SCH (10:35)
[2021-07-08 13:29] LABS: Bacteria/HPF None Seen HPF (None Seen); Bilirubin Negative (Negative); Blood, Urine Trace (Negative); Clarity Clear (Clear); Glucose, Urine (Dipstick) Normal (Negative); Ketone, Urine Negative (Negative); Leukocyte Negative Leu/uL (Negative); Nitrite Negative (Negative); Protein, Urine (Dipstick) 30 mg/dL (Neg-Trace); RBC/HPF 0-3 HPF (0-3); Specific Gravity, Urine 1.019 (1.002-1.036); Squamous Epithelial 0-3 HPF (0-3); Urobilinogen Normal mg/dL (Less than 2); WBC/HPF 0-3 HPF (0-3); pH, Urine 6.5 (5.0-9.0)
[2021-07-08 13:30] LABS: Urine Culture Reflex No No
[2021-07-08] MEDS ORDERED: Cosyntropin 250 MCG VIAL SLOW IVP SCH (16:00)
[2021-07-09 04:48] LABS: Anion Gap 11 mmol/L (10-20); BUN (Urea Nitrogen) 7 mg/dL (9.8-20.1); Calc. Creatinine Clearance 52 mL/min (70-130); Calcium 8.1 mg/dL (7.8-10.44); Carbon Dioxide 22 mmol/L (23-31); Chloride 112 mmol/L (98-107); Glucose 82 mg/dL (83-110); Potassium 4.5 mmol/L (3.5-5.1); Sodium 140 mmol/L (136-145)
[2021-07-09 05:15] LABS: Eosinophils 3 % (0-10); Hemoglobin 8.2 g/dL (12.0-16.0); Lymphocytes 48 % (21-51); MDiff Complete? YES; Macrocytosis MODERATE=16-30 cells (100X) (0-5/hpf); Mean Corpuscular Hemoglobin 35.5 pg (27.0-31.0); Mean Platelet Volume 7.3 fL (7.4-10.4); Monocytes 15 % (0-10); Neutrophil 34 % (42-75); Platelet Count 176 thou/uL (130-400); Platelet Morphology Comment Appears Adequate; RBC Distribution Width 13.3 % (11.5-14.5); White Blood Cell (WBC) Count 3.7 thou/uL (4.8-10.8)
[2021-07-09] MEDS: Bacitracin Zinc Ointment 30 gm TUBE TOP SCH (09:47)
[2021-07-09] MEDS: Acetaminophen 325 MG TAB PO PRN ×2 (12:52→20:29)
[2021-07-10] MEDS: Bacitracin Zinc Ointment 30 gm TUBE TOP SCH (08:31)
[2021-07-10 14:45] VITALS: BMI 34.3
[2021-07-10] MEDS ORDERED: Rosuvastatin 20 MG TAB PO SCH (21:00)
[2021-07-10] MEDS: Acetaminophen 325 MG TAB PO PRN (21:36)
[2021-07-11] MEDS: Bacitracin Zinc Ointment 30 gm TUBE TOP SCH (08:42)
[2021-07-11 12:09] VITALS: BP 122/56; TEMP 98.1
== END 2021-07-11 15:00 | disposition home or self-care (01) | DRG 312 ==
LOC: ERS 11:54 → 2NO 13:46 → OBSVTOIN 07-08 14:10
PROVIDERS: ADMIT Student in an Organized Health Care Education/Training Program; ATTEND Internal Medicine
PROC: 0HQ0XZZ Repair Scalp Skin, External Approach (ICD-10-PCS; principal; 2021-07-08)
DX: I95.1 Orthostatic hypotension (principal); E87.2 Acidosis; N18.4 Chronic kidney disease, stage 4 (severe); Z20.822 Contact with and (suspected) exposure to COVID-19; J45.909 Unspecified asthma, uncomplicated; I25.10 Atherosclerotic heart disease of native coronary artery without angina pectoris; S01.01XA Laceration without foreign body of scalp, initial encounter; W18.30XA Fall on same level, unspecified, initial encounter; F17.210 Nicotine dependence, cigarettes, uncomplicated; I12.9 Hypertensive chronic kidney disease with stage 1 through stage 4 chronic kidney disease, or unspecified chronic kidney disease; D63.1 Anemia in chronic kidney disease; D50.9 Iron deficiency anemia, unspecified; F32.A Depression, unspecified; E86.0 Dehydration; E87.6 Hypokalemia; K76.0 Fatty (change of) liver, not elsewhere classified; Z88.2 Allergy status to sulfonamides; Z79.899 Other long term (current) drug therapy; Z79.82 Long term (current) use of aspirin; Z90.49 Acquired absence of other specified parts of digestive tract; Z90.710 Acquired absence of both cervix and uterus
CPT/HCPCS: 12002; 36415; 70450; 71045; 72125; 76705; 80048; 80053; 80400; 81001; 82550; 82607; 82728; 82746; 83540; 83550; 83605; 83690; 83735; 83880; 83921; 84484; 85025; 85610; 85730; 87040; 93005; 93306; 93970; 96372; 96374; 96375; 96376; G0378; J0696; J0834; J1650; J2270; J2405; J2916; J7050; U0003; U0005

== ENCOUNTER 2021-11-15 21:11 | Inpatient (IN) | payer MEDICARE, MEDICAID ==
[2021-11-15 22:25] LABS: Hemoglobin 11.8 g/dL (12.0-16.0); Mean Corpuscular HGB CONC 34.8 g/dL (32.0-36.0); Mean Corpuscular Hemoglobin 37.9 pg (27.0-31.0); Mean Platelet Volume 7.5 fL (7.4-10.4); Platelet Count 216 thou/uL (130-400); RBC Distribution Width 13.5 % (11.5-14.5); Red Blood Cell (RBC) Count 3.12 mill/uL (4.20-5.40); White Blood Cell (WBC) Count 7.1 thou/uL (4.8-10.8)
[2021-11-15 22:32] LABS: ALT (SGPT) 11 U/L (8-55); AST (SGOT) 35 U/L (5-34); Albumin 2.4 g/dL (3.4-4.8); Alkaline Phosphatase 148 U/L (40-110); Anion Gap 18 mmol/L (10-20); BUN (Urea Nitrogen) 15 mg/dL (9.8-20.1); Bilirubin, Total 1.1 mg/dL (0.2-1.2); Calc. Creatinine Clearance 0 mL/min (70-130); Calcium 7.6 mg/dL (7.8-10.44); Carbon Dioxide 33 mmol/L (23-31); Chloride 85 mmol/L (98-107); Estimated GFR 28; Glucose 129 mg/dL (83-110); Protein, Total 5.4 g/dL (5.8-8.1); Sodium 134 mmol/L (136-145)
[2021-11-15 22:33] LABS: Potassium 2.1 mmol/L (3.5-5.1)
[2021-11-15 22:37] LABS: #Lymphocytes 0.9 thou/uL (1.20-3.40); #Monocytes 0.6 thou/uL (0.11-0.59); #Neutrophils 5.7 thou/uL (1.40-6.50); %Basophils 0.2 % (0.0-1.0); %Eosinophils 0.2 % (0.0-10.0); %Lymphocytes 12.2 % (21.0-51.0); %Monocytes 7.7 % (0.0-10.0); %Neutrophils 79.7 % (42.0-75.0); MDiff Complete? YES; Macrocytosis SLIGHT = 6-15 cells (100X) (0-5/hpf)
[2021-11-15] MEDS ORDERED: Potassium Chloride 20 MEQ TAB ONE (22:37)
[2021-11-15 22:44] LABS: Bacteria/HPF 4+ HPF (None Seen); Bilirubin Negative (Negative); Blood, Urine 3+ (Negative); Clarity Extra Turbid (Clear); Glucose, Urine (Dipstick) Normal (Negative); Ketone, Urine Negative (Negative); Leukocyte 25 Leu/uL (Negative); Nitrite Negative (Negative); Protein, Urine (Dipstick) 30 mg/dL (Neg-Trace); Specific Gravity, Urine 1.005 (1.002-1.036); Urobilinogen Normal mg/dL (Less than 2); pH, Urine 6.5 (5.0-9.0)
[2021-11-15 22:51] LABS: CKMB 1.6 ng/mL (0-6.6)
[2021-11-15] MEDS ORDERED: HYDROcodone/Acetaminophen 5/325 mg Tablet PO PRN (23:09)
[2021-11-15] MEDS ORDERED: Loperamide HCl 2 MG CAP PO PRN (23:09)
[2021-11-15] MEDS ORDERED: Ondansetron PF 4 MG/2 ML Vial IVP PRN (23:09)
[2021-11-15] MEDS ORDERED: Acetaminophen 325 MG TAB PO PRN (23:09)
[2021-11-15] MEDS ORDERED: Aspirin Chewable 81 MG TAB ONE (23:11)
[2021-11-15] MEDS ORDERED: Acetaminophen 500 MG TAB ONE ×2 (23:11→23:13)
[2021-11-15] MEDS ORDERED: Potassium Chloride 20 MEQ TAB PO SCH (23:15)
[2021-11-15] MEDS ORDERED: Enoxaparin Sodium 80 MG/0.8 ML SYRINGE ONE (23:24)
[2021-11-15 23:40] LABS: Magnesium 2.1 mg/dL (1.6-2.6)
[2021-11-16] MEDS: Potassium Chloride 20 MEQ in Premix Bag 1 BAG IVPB SCH ×2 (03:07→05:00)
[2021-11-16] MEDS: Nicotine 14 MG PATCH TD SCH ×2 (03:08→20:44)
[2021-11-16] MEDS: NS 0.9% w/ 40 MEQ KCL 1,000 ML IV SCH ×3 (03:24→21:10)
[2021-11-16 04:37] LABS: #Lymphocytes 1.7 thou/uL (1.20-3.40); #Monocytes 0.7 thou/uL (0.11-0.59); #Neutrophils 3.8 thou/uL (1.40-6.50); %Basophils 0.5 % (0.0-1.0); %Eosinophils 0.6 % (0.0-10.0); %Lymphocytes 26.8 % (21.0-51.0); %Monocytes 11.6 % (0.0-10.0); %Neutrophils 60.5 % (42.0-75.0); Hemoglobin 10.6 g/dL (12.0-16.0); Mean Corpuscular Hemoglobin 38.8 pg (27.0-31.0); Mean Platelet Volume 7.4 fL (7.4-10.4); Platelet Count 172 thou/uL (130-400); RBC Distribution Width 13.5 % (11.5-14.5); Red Blood Cell (RBC) Count 2.75 mill/uL (4.20-5.40); White Blood Cell (WBC) Count 6.3 thou/uL (4.8-10.8)
[2021-11-16 04:59] LABS: Troponin I 0.057 ng/mL (< 0.028)
[2021-11-16 05:00] LABS: Anion Gap 16 mmol/L (10-20); BUN (Urea Nitrogen) 16 mg/dL (9.8-20.1); BUN/Creatinine Ratio 8.89; Calc. Creatinine Clearance 34 mL/min (70-130); Calcium 7.6 mg/dL (7.8-10.44); Carbon Dioxide 34 mmol/L (23-31); Chloride 84 mmol/L (98-107); Estimated GFR 29; Glucose 100 mg/dL (83-110); Sodium 132 mmol/L (136-145)
[2021-11-16 05:05] LABS: Phosphorus 1.9 mg/dL (2.3-4.7); Potassium 2.1 mmol/L (3.5-5.1)
[2021-11-16] MEDS ORDERED: POTASSIUM PHOSPHATE IVPB SCH (06:15)
[2021-11-16] MEDS ORDERED: Electrolyte Replacement Protocol FS PRN (06:15)
[2021-11-16] MEDS ORDERED: POTASSIUM CHLORIDE IVPB SCH (06:15)
[2021-11-16] MEDS ORDERED: [UNRECOGNIZED DRUG - OTHER] IVPB SCH (06:15)
[2021-11-16] MEDS: Enoxaparin Sodium 30 MG/0.3 ML SYRINGE SC SCH (09:02)
[2021-11-16] MEDS: Aspirin 81 mg Enteric Coated Tablet PO SCH (09:02)
[2021-11-16] MEDS: Calcitriol 0.25 MCG CAP PO SCH (09:02)
[2021-11-16] MEDS: Rosuvastatin 20 MG TAB PO SCH (09:02)
[2021-11-16 10:43] LABS: Anion Gap 15 mmol/L (10-20); BUN (Urea Nitrogen) 15 mg/dL (9.8-20.1); Calc. Creatinine Clearance 35 mL/min (70-130); Calcium 7.5 mg/dL (7.8-10.44); Carbon Dioxide 35 mmol/L (23-31); Chloride 88 mmol/L (98-107); Estimated GFR 30; Glucose 89 mg/dL (83-110); Sodium 135 mmol/L (136-145)
[2021-11-16 13:21] LABS: Bacteria/HPF 1+ HPF (None Seen); Bilirubin Negative (Negative); Blood, Urine 3+ (Negative); Clarity Clear (Clear); Glucose, Urine (Dipstick) Normal (Negative); Ketone, Urine Negative (Negative); Leukocyte Negative Leu/uL (Negative); Nitrite Negative (Negative); Protein, Urine (Dipstick) 70 mg/dL (Neg-Trace); RBC/HPF 0-3 HPF (0-3); Squamous Epithelial 0-3 HPF (0-3); Urobilinogen 3 mg/dL (Less than 2); WBC/HPF 0-3 HPF (0-3)
[2021-11-16 13:47] LABS: Potassium, Urine 49.9 mmol/L
[2021-11-16] MEDS ORDERED: Potassium Chloride 20 MEQ TAB PO SCH (15:00)
[2021-11-16 15:51] LABS: Creatinine, Urine 55.05 mg/dL (47-110)
[2021-11-16 19:21] LABS: Potassium 3.2 mmol/L (3.5-5.1)
[2021-11-17] MEDS: NS 0.9% w/ 40 MEQ KCL 1,000 ML IV SCH (07:11)
[2021-11-17] MEDS ORDERED: Potassium Chloride 20 MEQ TAB PO SCH (08:00)
[2021-11-17] MEDS: Calcitriol 0.25 MCG CAP PO SCH (09:01)
[2021-11-17] MEDS: Enoxaparin Sodium 30 MG/0.3 ML SYRINGE SC SCH (09:02)
[2021-11-17] MEDS: Aspirin 81 mg Enteric Coated Tablet PO SCH (09:02)
[2021-11-17] MEDS: Rosuvastatin 20 MG TAB PO SCH (09:02)
[2021-11-17] MEDS: Midodrine HCl 5 MG TAB PO SCH ×3 (09:05→20:09)
[2021-11-17 10:03] LABS: #Lymphocytes 1.4 thou/uL (1.20-3.40); #Monocytes 0.6 thou/uL (0.11-0.59); #Neutrophils 3.3 thou/uL (1.40-6.50); %Basophils 0.4 % (0.0-1.0); %Eosinophils 0.8 % (0.0-10.0); %Lymphocytes 25.5 % (21.0-51.0); %Monocytes 12.1 % (0.0-10.0); %Neutrophils 61.2 % (42.0-75.0); Hemoglobin 10.3 g/dL (12.0-16.0); Mean Corpuscular HGB CONC 33.1 g/dL (32.0-36.0); Mean Corpuscular Hemoglobin 36.7 pg (27.0-31.0); Mean Platelet Volume 7.3 fL (7.4-10.4); Platelet Count 173 thou/uL (130-400); RBC Distribution Width 13.7 % (11.5-14.5); White Blood Cell (WBC) Count 5.3 thou/uL (4.8-10.8)
[2021-11-17 10:34] LABS: Anion Gap 16 mmol/L (10-20); BUN (Urea Nitrogen) 13 mg/dL (9.8-20.1); Calc. Creatinine Clearance 39 mL/min (70-130); Calcium 7.2 mg/dL (7.8-10.44); Carbon Dioxide 27 mmol/L (23-31); Chloride 97 mmol/L (98-107); Estimated GFR 33; Glucose 129 mg/dL (83-110); Sodium 136 mmol/L (136-145)
[2021-11-17 14:58] VITALS: BMI 29.7
[2021-11-17 15:35] LABS: Magnesium 1.9 mg/dL (1.6-2.6); Potassium 4.2 mmol/L (3.5-5.1)
[2021-11-17] MEDS: Nicotine 14 MG PATCH TD SCH (21:40)
[2021-11-18 04:32] LABS: #Basophils 0.1 thou/uL (0.0-0.2); #Eosinphils 0.1 thou/uL (0.0-0.7); #Lymphocytes 2.2 thou/uL (1.20-3.40); #Monocytes 0.8 thou/uL (0.11-0.59); #Neutrophils 2.5 thou/uL (1.40-6.50); %Eosinophils 1.6 % (0.0-10.0); %Lymphocytes 38.4 % (21.0-51.0); Hemoglobin 9.5 g/dL (12.0-16.0); Mean Corpuscular HGB CONC 33.8 g/dL (32.0-36.0); Mean Corpuscular Hemoglobin 37.9 pg (27.0-31.0); Mean Platelet Volume 7.6 fL (7.4-10.4); Platelet Count 174 thou/uL (130-400); RBC Distribution Width 13.8 % (11.5-14.5); Red Blood Cell (RBC) Count 2.51 mill/uL (4.20-5.40); White Blood Cell (WBC) Count 5.6 thou/uL (4.8-10.8)
[2021-11-18 04:56] LABS: Anion Gap 10 mmol/L (10-20); BUN (Urea Nitrogen) 12 mg/dL (9.8-20.1); Calc. Creatinine Clearance 43 mL/min (70-130); Calcium 7.5 mg/dL (7.8-10.44); Carbon Dioxide 30 mmol/L (23-31); Chloride 99 mmol/L (98-107); Estimated GFR 37; Glucose 88 mg/dL (83-110); Potassium 3.6 mmol/L (3.5-5.1); Sodium 135 mmol/L (136-145)
[2021-11-18] MEDS: Enoxaparin Sodium 30 MG/0.3 ML SYRINGE SC SCH (09:01)
[2021-11-18] MEDS: Aspirin 81 mg Enteric Coated Tablet PO SCH (09:01)
[2021-11-18] MEDS: Rosuvastatin 20 MG TAB PO SCH (09:01)
[2021-11-18] MEDS: Calcitriol 0.25 MCG CAP PO SCH (09:01)
[2021-11-18] MEDS: Midodrine HCl 5 MG TAB PO SCH ×3 (09:01→20:54)
[2021-11-18] MEDS ORDERED: Potassium Chloride 20 MEQ TAB PO SCH (09:15)
[2021-11-18] MEDS: Nicotine 14 MG PATCH TD SCH (20:57)
[2021-11-19 04:59] LABS: #Eosinphils 0.1 thou/uL (0.0-0.7); #Monocytes 0.8 thou/uL (0.11-0.59); #Neutrophils 2.5 thou/uL (1.40-6.50); %Basophils 0.9 % (0.0-1.0); %Eosinophils 1.7 % (0.0-10.0); %Monocytes 14.5 % (0.0-10.0); %Neutrophils 45.9 % (42.0-75.0); Hemoglobin 9.7 g/dL (12.0-16.0); Mean Corpuscular HGB CONC 34.9 g/dL (32.0-36.0); Mean Corpuscular Hemoglobin 38.5 pg (27.0-31.0); Mean Platelet Volume 7.6 fL (7.4-10.4); Platelet Count 189 thou/uL (130-400); RBC Distribution Width 13.7 % (11.5-14.5); Red Blood Cell (RBC) Count 2.52 mill/uL (4.20-5.40); White Blood Cell (WBC) Count 5.5 thou/uL (4.8-10.8)
[2021-11-19 05:19] LABS: Anion Gap 13 mmol/L (10-20); BUN (Urea Nitrogen) 13 mg/dL (9.8-20.1); Calc. Creatinine Clearance 43 mL/min (70-130); Calcium 7.8 mg/dL (7.8-10.44); Carbon Dioxide 24 mmol/L (23-31); Chloride 100 mmol/L (98-107); Estimated GFR 37; Glucose 86 mg/dL (83-110); Potassium 3.7 mmol/L (3.5-5.1); Sodium 133 mmol/L (136-145)
[2021-11-19] MEDS: Midodrine HCl 5 MG TAB PO SCH ×2 (09:05→15:05)
[2021-11-19] MEDS: Aspirin 81 mg Enteric Coated Tablet PO SCH (09:05)
[2021-11-19] MEDS: Enoxaparin Sodium 30 MG/0.3 ML SYRINGE SC SCH (09:05)
[2021-11-19] MEDS: Calcitriol 0.25 MCG CAP PO SCH (09:05)
[2021-11-19] MEDS: Rosuvastatin 20 MG TAB PO SCH (09:05)
[2021-11-19 15:49] VITALS: BP 103/55; TEMP 98.2
== END 2021-11-19 17:15 | disposition home health service (06) | DRG 640 ==
LOC: ERS 21:11 → 2NO 23:09 → OBSVTOIN 11-17 12:42
PROVIDERS: ADMIT Internal Medicine; ATTEND Internal Medicine
DX: E86.0 Dehydration (principal); I21.4 Non-ST elevation (NSTEMI) myocardial infarction; I13.0 Hypertensive heart and chronic kidney disease with heart failure and stage 1 through stage 4 chronic kidney disease, or unspecified chronic kidney disease; I50.32 Chronic diastolic (congestive) heart failure; N17.9 Acute kidney failure, unspecified; E87.0 Hyperosmolality and hypernatremia; Z20.822 Contact with and (suspected) exposure to COVID-19; E87.3 Alkalosis; E78.5 Hyperlipidemia, unspecified; F32.A Depression, unspecified; J44.9 Chronic obstructive pulmonary disease, unspecified; I25.10 Atherosclerotic heart disease of native coronary artery without angina pectoris; E87.6 Hypokalemia; I95.1 Orthostatic hypotension; E83.51 Hypocalcemia; E66.9 Obesity, unspecified; N18.30 Chronic kidney disease, stage 3 unspecified; E88.09 Other disorders of plasma-protein metabolism, not elsewhere classified; R82.81 Pyuria; Z90.710 Acquired absence of both cervix and uterus; Z88.2 Allergy status to sulfonamides; Z90.49 Acquired absence of other specified parts of digestive tract; Z79.82 Long term (current) use of aspirin
CPT/HCPCS: 36415; 71045; 80048; 80053; 80069; 81003; 81015; 82088; 82306; 82436; 82553; 82570; 83735; 83880; 83970; 84132; 84133; 84156; 84244; 84300; 84443; 84484; 85025; 93005; 93880; 93970; 96372; 96374; 96375; 96376; G0378; J1650; J3475; J3480; J3490; J7050; U0003; U0005

== ENCOUNTER 2022-02-03 12:30 | Inpatient (IN) | payer MEDICARE, MEDICAID ==
[2022-02-03 13:16] LABS: #Lymphocytes 0.9 thou/uL (1.20-3.40); #Monocytes 0.5 thou/uL (0.11-0.59); #Neutrophils 4.7 thou/uL (1.40-6.50); %Basophils 0.1 % (0.0-1.0); %Eosinophils 0.3 % (0.0-10.0); %Monocytes 8.8 % (0.0-10.0); %Neutrophils 76.8 % (42.0-75.0); Hemoglobin 10.5 g/dL (12.0-16.0); Mean Corpuscular HGB CONC 33.1 g/dL (32.0-36.0); Mean Corpuscular Hemoglobin 37.3 pg (27.0-31.0); Mean Platelet Volume 7.7 fL (7.4-10.4); Platelet Count 235 10x3/uL (130-400); RBC Distribution Width 12.8 % (11.5-14.5); Red Blood Cell (RBC) Count 2.81 mill/uL (4.20-5.40); White Blood Cell (WBC) Count 6.1 10x3/uL (4.8-10.8)
[2022-02-03 13:45] LABS: MDiff Complete? YES; Macrocytosis SLIGHT = 6-15 cells (100X) (0-5/hpf); Platelet Morphology Comment Appears Adequate; Polychromasia SLIGHT = 2-3 cells (100X) (0-2/hpf)
[2022-02-03 13:48] LABS: ALT (SGPT) 13 U/L (8-55); AST (SGOT) 35 U/L (5-34); Albumin 2.4 g/dL (3.4-4.8); Alkaline Phosphatase 160 U/L (40-110); Anion Gap 16 mmol/L (10-20); BUN (Urea Nitrogen) 8 mg/dL (9.8-20.1); Bilirubin, Total 0.7 mg/dL (0.2-1.2); Calc. Creatinine Clearance 0 mL/min (70-130); Calcium 8.3 mg/dL (7.8-10.44); Carbon Dioxide 21 mmol/L (23-31); Chloride 104 mmol/L (98-107); Estimated GFR 34; Globulin 3.3 g/dL (2.4-3.5); Glucose 99 mg/dL (83-110); Potassium 2.9 mmol/L (3.5-5.1); Protein, Total 5.7 g/dL (5.8-8.1); Sodium 138 mmol/L (136-145)
[2022-02-03] MEDS ORDERED: Midodrine HCl 5 MG TAB PO SCH ×2 (14:00→21:00)
[2022-02-03] MEDS ORDERED: Potassium Chloride 20 MEQ TAB ONE (14:18)
[2022-02-03] MEDS ORDERED: Cefepime 1 GM VIAL ONE (15:08)
[2022-02-03] MEDS ORDERED: CEFAZOLIN 1 GM VIAL ONE (15:08)
[2022-02-03] MEDS ORDERED: Ondansetron PF 4 MG/2 ML Vial IVP PRN (15:47)
[2022-02-03] MEDS ORDERED: Acetaminophen 325 MG TAB PO PRN (15:47)
[2022-02-03] MEDS ORDERED: Ondansetron ODT 4 MG TAB PO PRN (15:47)
[2022-02-03] MEDS ORDERED: Potassium Chloride 20 MEQ TAB PO SCH (16:00)
[2022-02-03] MEDS ORDERED: Vancomycin 1 GM/200 ML (FROZEN) BAG ONE (16:12)
[2022-02-03 17:03] LABS: Lactic Acid 2.2 mmol/L (0.5-2.2)
[2022-02-03 18:26] LABS: SARS-CoV-2 NAA Rapid Test Not Detected (NotDetected)
[2022-02-03] MEDS: Mometasone 200 MCG/Formoterol 5 MCG 120 PUFF INHALER INH SCH (18:52)
[2022-02-04] MEDS: Sodium Chloride 0.9% 1,000 ML IV SCH ×2 (00:18→06:10)
[2022-02-04 03:55] VITALS: BMI 31.4
[2022-02-04 05:29] LABS: ALT (SGPT) 11 U/L (8-55); AST (SGOT) 25 U/L (5-34); Albumin 1.9 g/dL (3.4-4.8); Alkaline Phosphatase 121 U/L (40-110); Anion Gap 10 mmol/L (10-20); BUN (Urea Nitrogen) 8 mg/dL (9.8-20.1); Bilirubin, Total 0.6 mg/dL (0.2-1.2); Calc. Creatinine Clearance 40 mL/min (70-130); Calcium 7.2 mg/dL (7.8-10.44); Carbon Dioxide 23 mmol/L (23-31); Chloride 110 mmol/L (98-107); Estimated GFR 36; Globulin 2.5 g/dL (2.4-3.5); Glucose 85 mg/dL (83-110); Magnesium 1.8 mg/dL (1.6-2.6); Potassium 2.8 mmol/L (3.5-5.1); Protein, Total 4.4 g/dL (5.8-8.1); Sodium 140 mmol/L (136-145)
[2022-02-04 06:05] LABS: Band 1 % (5-11); Lymphocytes 22 % (21-51); MDiff Complete? YES; Macrocytosis MODERATE=16-30 cells (100X) (0-5/hpf); Mean Corpuscular HGB CONC 33.9 g/dL (32.0-36.0); Mean Corpuscular Hemoglobin 38.2 pg (27.0-31.0); Mean Platelet Volume 7.4 fL (7.4-10.4); Monocytes 10 % (0-10); Neutrophil 67 % (42-75); Ovalocytes SLIGHT = 2-5 cells (100X) (0-1/hpf); Platelet Count 176 10x3/uL (130-400); Platelet Morphology Comment Appears Adequate; RBC Distribution Width 12.9 % (11.5-14.5); Red Blood Cell (RBC) Count 2.35 mill/uL (4.20-5.40); White Blood Cell (WBC) Count 4.8 10x3/uL (4.8-10.8)
[2022-02-04] MEDS ORDERED: Magnesium Sulfate 3 GM in Sodium Chloride 0.9% 100 ML IVPB SCH (07:45)
[2022-02-04] MEDS: Mometasone 200 MCG/Formoterol 5 MCG 120 PUFF INHALER INH SCH ×2 (07:51→18:43)
[2022-02-04 08:17] LABS: Bacteria/HPF 3+ HPF (None Seen); Bilirubin Negative (Negative); Blood, Urine 2+ (Negative); CAUTI Indications for Culture Dysuria,urgency,freq; Clarity Turbid (Clear); Glucose, Urine (Dipstick) Normal (Negative); Ketone, Urine Negative (Negative); Leukocyte 25 Leu/uL (Negative); Nitrite 2+ (Negative); Protein, Urine (Dipstick) 70 mg/dL (Neg-Trace); RBC/HPF 0-3 HPF (0-3); Squamous Epithelial 0-3 HPF (0-3); Urobilinogen Normal mg/dL (Less than 2); pH, Urine 5.5 (5.0-9.0)
[2022-02-04 08:22] LABS: Urine Culture Reflex No No
[2022-02-04] MEDS: FLUoxetine HCl 20 MG CAP PO SCH (09:29)
[2022-02-04] MEDS: Rosuvastatin 20 MG TAB PO SCH (09:29)
[2022-02-04] MEDS: Midodrine HCl 5 MG TAB PO SCH ×3 (09:30→20:26)
[2022-02-04] MEDS: Potassium Chloride 20 MEQ TAB PO SCH ×3 (09:30→15:42)
[2022-02-04] MEDS: Aspirin 81 mg Enteric Coated Tablet PO SCH (09:30)
[2022-02-04] MEDS: Montelukast Sodium 10 mg Tablet PO SCH (09:31)
[2022-02-04] MEDS: Enoxaparin Sodium 40 MG/0.4 ML SYRINGE SC SCH (09:33)
[2022-02-04] MEDS: cefTRIAXone\\ROCEPHIN 1 GM in Sodium Chloride 0.9% 100 ML IVPB SCH (12:18)
[2022-02-04 19:08] LABS: Magnesium 2.4 mg/dL (1.6-2.6)
[2022-02-04] MEDS: Mirtazapine 15 MG Soltab PO SCH (20:27)
[2022-02-05 05:03] LABS: Anion Gap 8 mmol/L (10-20); BUN (Urea Nitrogen) 7 mg/dL (9.8-20.1); Calc. Creatinine Clearance 45 mL/min (70-130); Calcium 7.3 mg/dL (7.8-10.44); Carbon Dioxide 22 mmol/L (23-31); Chloride 114 mmol/L (98-107); Estimated GFR 41; Glucose 79 mg/dL (83-110); Magnesium 2.4 mg/dL (1.6-2.6); Potassium 4.4 mmol/L (3.5-5.1); Sodium 140 mmol/L (136-145)
[2022-02-05 05:17] LABS: Band 2 % (5-11); Hemoglobin 8.5 g/dL (12.0-16.0); Hypochromia SLIGHT = 6-15 cells (100X) (0-5/hpf); Lymphocytes 42 % (21-51); MDiff Complete? YES; Mean Corpuscular HGB CONC 33.3 g/dL (32.0-36.0); Mean Corpuscular Hemoglobin 37.8 pg (27.0-31.0); Mean Platelet Volume 7.5 fL (7.4-10.4); Monocytes 5 % (0-10); Neutrophil 51 % (42-75); Platelet Count 171 10x3/uL (130-400); Platelet Morphology Comment Appears Adequate; Red Blood Cell (RBC) Count 2.26 mill/uL (4.20-5.40); White Blood Cell (WBC) Count 6.3 10x3/uL (4.8-10.8)
[2022-02-05] MEDS: Mometasone 200 MCG/Formoterol 5 MCG 120 PUFF INHALER INH SCH ×2 (07:13→18:57)
[2022-02-05] MEDS ORDERED: Iron, Sodium Ferric Gluconate 250 MG in Sodium Chloride 0.9% 250 ML 250 ML IVPB SCH (08:00)
[2022-02-05] MEDS: Aspirin 81 mg Enteric Coated Tablet PO SCH ×2 (09:07→09:08)
[2022-02-05] MEDS: Rosuvastatin 20 MG TAB PO SCH (09:08)
[2022-02-05] MEDS: FLUoxetine HCl 20 MG CAP PO SCH (09:08)
[2022-02-05] MEDS: Montelukast Sodium 10 mg Tablet PO SCH (09:09)
[2022-02-05] MEDS: Midodrine HCl 5 MG TAB PO SCH ×4 (09:09→22:54)
[2022-02-05] MEDS: Enoxaparin Sodium 40 MG/0.4 ML SYRINGE SC SCH (09:09)
[2022-02-05] MEDS: cefTRIAXone\\ROCEPHIN 1 GM in Sodium Chloride 0.9% 100 ML IVPB SCH (11:10)
[2022-02-05] MEDS: Mirtazapine 15 MG Soltab PO SCH (22:54)
[2022-02-06 05:21] LABS: Anion Gap 9 mmol/L (10-20); BUN (Urea Nitrogen) 7 mg/dL (9.8-20.1); Calc. Creatinine Clearance 46 mL/min (70-130); Calcium 7.4 mg/dL (7.8-10.44); Carbon Dioxide 22 mmol/L (23-31); Chloride 114 mmol/L (98-107); Estimated GFR 41; Glucose 81 mg/dL (83-110); Potassium 4.5 mmol/L (3.5-5.1); Sodium 140 mmol/L (136-145)
[2022-02-06 05:30] LABS: Band 4 % (5-11); Eosinophils 2 % (0-10); Hemoglobin 9.2 g/dL (12.0-16.0); Lymphocytes 41 % (21-51); MDiff Complete? YES; Mean Corpuscular Hemoglobin 39.4 pg (27.0-31.0); Mean Platelet Volume 7.8 fL (7.4-10.4); Monocytes 6 % (0-10); Neutrophil 47 % (42-75); Platelet Count 179 10x3/uL (130-400); RBC Distribution Width 12.8 % (11.5-14.5); Red Blood Cell (RBC) Count 2.33 mill/uL (4.20-5.40)
[2022-02-06] MEDS: Mometasone 200 MCG/Formoterol 5 MCG 120 PUFF INHALER INH SCH ×2 (07:11→19:41)
[2022-02-06] MEDS: Rosuvastatin 20 MG TAB PO SCH (08:22)
[2022-02-06] MEDS: FLUoxetine HCl 20 MG CAP PO SCH (08:22)
[2022-02-06] MEDS: Aspirin 81 mg Enteric Coated Tablet PO SCH (08:22)
[2022-02-06] MEDS: Midodrine HCl 5 MG TAB PO SCH ×3 (08:22→21:37)
[2022-02-06] MEDS: Montelukast Sodium 10 mg Tablet PO SCH (08:22)
[2022-02-06] MEDS: Enoxaparin Sodium 40 MG/0.4 ML SYRINGE SC SCH (08:27)
[2022-02-06] MEDS: Fludrocortisone Acetate 0.1 MG TAB PO SCH (08:32)
[2022-02-06] MEDS: cefTRIAXone\\ROCEPHIN 1 GM in Sodium Chloride 0.9% 100 ML IVPB SCH (10:35)
[2022-02-06] MEDS: Mirtazapine 15 MG Soltab PO SCH (21:37)
[2022-02-07 04:53] LABS: Anion Gap 9 mmol/L (10-20); BUN (Urea Nitrogen) 8 mg/dL (9.8-20.1); Calc. Creatinine Clearance 42 mL/min (70-130); Calcium 7.6 mg/dL (7.8-10.44); Carbon Dioxide 22 mmol/L (23-31); Chloride 114 mmol/L (98-107); Estimated GFR 37; Glucose 81 mg/dL (83-110); Potassium 4.1 mmol/L (3.5-5.1); Sodium 141 mmol/L (136-145)
[2022-02-07 05:09] LABS: Eosinophils 6 % (0-10); Hemoglobin 8.9 g/dL (12.0-16.0); Lymphocytes 47 % (21-51); MDiff Complete? YES; Macrocytosis SLIGHT = 6-15 cells (100X) (0-5/hpf); Mean Corpuscular HGB CONC 31.3 g/dL (32.0-36.0); Mean Corpuscular Hemoglobin 36.2 pg (27.0-31.0); Mean Platelet Volume 7.9 fL (7.4-10.4); Monocytes 14 % (0-10); Myelocyte 1 % (0-0); Neutrophil 32 % (42-75); Platelet Count 179 10x3/uL (130-400); RBC Distribution Width 12.9 % (11.5-14.5); Red Blood Cell (RBC) Count 2.45 mill/uL (4.20-5.40); White Blood Cell (WBC) Count 4.3 10x3/uL (4.8-10.8)
[2022-02-07] MEDS: Mometasone 200 MCG/Formoterol 5 MCG 120 PUFF INHALER INH SCH ×2 (06:54→18:35)
[2022-02-07] MEDS: FLUoxetine HCl 20 MG CAP PO SCH (10:21)
[2022-02-07] MEDS: Aspirin 81 mg Enteric Coated Tablet PO SCH (10:21)
[2022-02-07] MEDS: Rosuvastatin 20 MG TAB PO SCH (10:21)
[2022-02-07] MEDS: Fludrocortisone Acetate 0.1 MG TAB PO SCH (10:22)
[2022-02-07] MEDS: Midodrine HCl 5 MG TAB PO SCH ×3 (10:22→23:12)
[2022-02-07] MEDS: Nitrofurantoin Monohyd/M-Cryst 100 MG CAP PO SCH ×2 (10:22→23:13)
[2022-02-07] MEDS: Enoxaparin Sodium 40 MG/0.4 ML SYRINGE SC SCH (10:22)
[2022-02-07] MEDS: Montelukast Sodium 10 mg Tablet PO SCH (10:22)
[2022-02-07] MEDS: Mirtazapine 15 MG Soltab PO SCH (23:12)
[2022-02-08 06:05] LABS: Anion Gap 9 mmol/L (10-20); BUN (Urea Nitrogen) 8 mg/dL (9.8-20.1); Calc. Creatinine Clearance 47 mL/min (70-130); Calcium 7.6 mg/dL (7.8-10.44); Carbon Dioxide 23 mmol/L (23-31); Chloride 116 mmol/L (98-107); Estimated GFR 43; Glucose 79 mg/dL (83-110); Magnesium 2.1 mg/dL (1.6-2.6); Potassium 3.8 mmol/L (3.5-5.1); Sodium 144 mmol/L (136-145)
[2022-02-08] MEDS: Mometasone 200 MCG/Formoterol 5 MCG 120 PUFF INHALER INH SCH (07:07)
[2022-02-08] MEDS: Midodrine HCl 5 MG TAB PO SCH (09:06)
[2022-02-08] MEDS: Rosuvastatin 20 MG TAB PO SCH (09:07)
[2022-02-08] MEDS: Aspirin 81 mg Enteric Coated Tablet PO SCH (09:07)
[2022-02-08] MEDS: Enoxaparin Sodium 40 MG/0.4 ML SYRINGE SC SCH (09:07)
[2022-02-08] MEDS: FLUoxetine HCl 20 MG CAP PO SCH (09:07)
[2022-02-08] MEDS: Fludrocortisone Acetate 0.1 MG TAB PO SCH (09:08)
[2022-02-08] MEDS: Montelukast Sodium 10 mg Tablet PO SCH (09:08)
[2022-02-08] MEDS: Nitrofurantoin Monohyd/M-Cryst 100 MG CAP PO SCH (09:08)
[2022-02-08 11:38] VITALS: BP 123/58; TEMP 98.5
== END 2022-02-08 13:30 | disposition home health service (06) | DRG 312 ==
LOC: ERS 12:30 → SUATTDRO 12:30 → 2NO 18:19 → OBSVTOIN 02-05 12:14
PROVIDERS: ADMIT Internal Medicine; ATTEND Internal Medicine
DX: I95.1 Orthostatic hypotension (principal); I13.0 Hypertensive heart and chronic kidney disease with heart failure and stage 1 through stage 4 chronic kidney disease, or unspecified chronic kidney disease; N39.0 Urinary tract infection, site not specified; E87.20 Acidosis, unspecified; I50.32 Chronic diastolic (congestive) heart failure; I25.10 Atherosclerotic heart disease of native coronary artery without angina pectoris; Z20.822 Contact with and (suspected) exposure to COVID-19; E86.0 Dehydration; J45.909 Unspecified asthma, uncomplicated; D50.9 Iron deficiency anemia, unspecified; N18.30 Chronic kidney disease, stage 3 unspecified; Z88.2 Allergy status to sulfonamides; Z79.82 Long term (current) use of aspirin; Z79.899 Other long term (current) drug therapy
CPT/HCPCS: 36415; 70450; 71045; 80048; 80053; 81001; 82728; 83605; 83735; 83880; 84443; 84484; 85025; 87040; 93005; 96365; 96366; 96367; 96372; 96375; 96376; G0378; J0690; J0692; J0696; J1650; J2916; J3370-JW; J3475; J3490; J7050

== ENCOUNTER 2022-02-26 10:54 | Inpatient (IN) | payer MEDICARE, MEDICAID ==
[2022-02-26 11:49] LABS: Hemoglobin 10.6 g/dL (12.0-16.0); Mean Corpuscular HGB CONC 33.1 g/dL (32.0-36.0); Mean Corpuscular Hemoglobin 38.1 pg (27.0-31.0); Mean Platelet Volume 9.3 fL (7.4-10.4); Platelet Count 162 10x3/uL (130-400); RBC Distribution Width 13.3 % (11.5-14.5); Red Blood Cell (RBC) Count 2.79 mill/uL (4.20-5.40); White Blood Cell (WBC) Count 16.1 10x3/uL (4.8-10.8)
[2022-02-26 11:59] LABS: INR-International Normal Ratio 1.1; PTT 43.6 sec (22.9-36.1)
[2022-02-26 12:10] LABS: Band 21 % (5-11); Lymphocytes 14 % (21-51); MDiff Complete? YES; Macrocytosis MODERATE=16-30 cells (100X) (0-5/hpf); Monocytes 6 % (0-10); Neutrophil 58 % (42-75); Platelet Morphology Comment Appears Adequate; Polychromasia SLIGHT = 2-3 cells (100X) (0-2/hpf); Reactive Lymphocytes 1 % (0-10)
[2022-02-26] MEDS ORDERED: Albuterol 200 PUFF (6.7GM INHALER) ONE (12:17)
[2022-02-26 12:18] LABS: ALT (SGPT) 44 U/L (8-55); AST (SGOT) 72 U/L (5-34); Alkaline Phosphatase 221 U/L (40-110); Anion Gap 14 mmol/L (10-20); BUN (Urea Nitrogen) 9 mg/dL (9.8-20.1); Bilirubin, Total 1.5 mg/dL (0.2-1.2); Calc. Creatinine Clearance 0 mL/min (70-130); Calcium 7.3 mg/dL (7.8-10.44); Carbon Dioxide 22 mmol/L (23-31); Chloride 109 mmol/L (98-107); Estimated GFR 44; Globulin 3.2 g/dL (2.4-3.5); Glucose 81 mg/dL (83-110); Magnesium 1.8 mg/dL (1.6-2.6); Potassium 3.5 mmol/L (3.5-5.1); Protein, Total 5.2 g/dL (5.8-8.1); Sodium 141 mmol/L (136-145)
[2022-02-26] MEDS ORDERED: methylPREDNISolone Sod Succ/PF 125 MG/2 ML VIAL ONE (13:05)
[2022-02-26 15:19] LABS: Bacteria/HPF 4+ HPF (None Seen); Bilirubin Negative (Negative); Blood, Urine 1+ (Negative); Clarity Extra Turbid (Clear); Glucose, Urine (Dipstick) Normal (Negative); Ketone, Urine Negative (Negative); Leukocyte 500 Leu/uL (Negative); Nitrite 2+ (Negative); Protein, Urine (Dipstick) 30 mg/dL (Neg-Trace); Specific Gravity, Urine 1.016 (1.002-1.036); Squamous Epithelial 0-3 HPF (0-3); WBC/HPF Greater than 50 HPF (0-3); pH, Urine 5.5 (5.0-9.0)
[2022-02-26] MEDS ORDERED: Iopamidol-370 76% 500 ML 1 ML ONE (15:56)
[2022-02-26 16:47] VITALS: BMI 28.9
[2022-02-26] MEDS: Midodrine HCl 5 MG TAB PO SCH ×2 (17:48→20:22)
[2022-02-26] MEDS ORDERED: Furosemide 20 MG/2 ML VIAL SLOW IVP SCH (18:30)
[2022-02-26] MEDS ORDERED: Potassium Chloride 20 MEQ TAB PO SCH (18:30)
[2022-02-26] MEDS: Mometasone 200 MCG/Formoterol 5 MCG 120 PUFF INHALER INH SCH (18:39)
[2022-02-27] MEDS ORDERED: Furosemide 20 MG/2 ML VIAL SLOW IVP SCH ×2 (06:00→09:30)
[2022-02-27] MEDS: Mometasone 200 MCG/Formoterol 5 MCG 120 PUFF INHALER INH SCH ×2 (06:48→19:07)
[2022-02-27 07:16] LABS: #Lymphocytes 0.9 thou/uL (1.20-3.40); #Monocytes 0.6 thou/uL (0.11-0.59); #Neutrophils 9.3 thou/uL (1.40-6.50); %Basophils 0.1 % (0.0-1.0); %Eosinophils 0.1 % (0.0-10.0); %Monocytes 5.6 % (0.0-10.0); %Neutrophils 86.3 % (42.0-75.0); Mean Corpuscular HGB CONC 32.5 g/dL (32.0-36.0); Mean Corpuscular Hemoglobin 37.7 pg (27.0-31.0); Mean Platelet Volume 8.7 fL (7.4-10.4); Platelet Count 166 10x3/uL (130-400); RBC Distribution Width 13.3 % (11.5-14.5); Red Blood Cell (RBC) Count 2.65 mill/uL (4.20-5.40); White Blood Cell (WBC) Count 10.8 10x3/uL (4.8-10.8)
[2022-02-27 07:23] LABS: Hemoglobin A1c 4.6 % (4.0-6.0)
[2022-02-27 07:39] LABS: ALT (SGPT) 36 U/L (8-55); AST (SGOT) 50 U/L (5-34); Albumin 1.8 g/dL (3.4-4.8); Alkaline Phosphatase 187 U/L (40-110); Anion Gap 11 mmol/L (10-20); BUN (Urea Nitrogen) 9 mg/dL (9.8-20.1); Calc. Creatinine Clearance 52 mL/min (70-130); Calcium 7.1 mg/dL (7.8-10.44); Carbon Dioxide 23 mmol/L (23-31); Chloride 111 mmol/L (98-107); Estimated GFR 48; Globulin 3.1 g/dL (2.4-3.5); Glucose 129 mg/dL (83-110); Magnesium 1.9 mg/dL (1.6-2.6); Phosphorus 3.2 mg/dL (2.3-4.7); Potassium 4.5 mmol/L (3.5-5.1); Protein, Total 4.9 g/dL (5.8-8.1); Sodium 140 mmol/L (136-145)
[2022-02-27] MEDS: FLUoxetine HCl 20 MG CAP PO SCH (08:28)
[2022-02-27] MEDS: predniSONE 20 MG TAB PO SCH (08:28)
[2022-02-27] MEDS: Enoxaparin Sodium 30 MG/0.3 ML SYRINGE SC SCH (08:28)
[2022-02-27] MEDS: Calcitriol 0.25 MCG CAP PO SCH (08:28)
[2022-02-27] MEDS: Montelukast Sodium 10 mg Tablet PO SCH (08:29)
[2022-02-27] MEDS: Midodrine HCl 5 MG TAB PO SCH ×3 (08:29→20:10)
[2022-02-27] MEDS: Rosuvastatin 20 MG TAB PO SCH (08:29)
[2022-02-27] MEDS ORDERED: Fludrocortisone Acetate 0.1 MG TAB PO SCH (09:00)
[2022-02-27] MEDS ORDERED: Potassium Chloride 20 MEQ TAB PO SCH (17:00)
[2022-02-28 07:09] LABS: Anion Gap 12 mmol/L (10-20); BUN (Urea Nitrogen) 13 mg/dL (9.8-20.1); Calc. Creatinine Clearance 45 mL/min (70-130); Calcium 7.2 mg/dL (7.8-10.44); Carbon Dioxide 19 mmol/L (23-31); Chloride 111 mmol/L (98-107); Estimated GFR 40; Glucose 95 mg/dL (83-110); Potassium 4.6 mmol/L (3.5-5.1); Sodium 137 mmol/L (136-145)
[2022-02-28 08:23] LABS: Band 10 % (5-11); Lymphocytes 8 % (21-51); MDiff Complete? YES; Mean Corpuscular HGB CONC 31.9 g/dL (32.0-36.0); Mean Platelet Volume 9.3 fL (7.4-10.4); Monocytes 5 % (0-10); Neutrophil 77 % (42-75); Platelet Count 172 10x3/uL (130-400); Platelet Morphology Comment Appears Adequate; Polychromasia SLIGHT = 2-3 cells (100X) (0-2/hpf); RBC Distribution Width 13.5 % (11.5-14.5); Red Blood Cell (RBC) Count 2.42 mill/uL (4.20-5.40); Target Cells SLIGHT = 2-5 cells (100X) (0-1/hpf); White Blood Cell (WBC) Count 9.1 10x3/uL (4.8-10.8)
[2022-02-28] MEDS: Mometasone 200 MCG/Formoterol 5 MCG 120 PUFF INHALER INH SCH ×2 (08:40→19:22)
[2022-02-28] MEDS: Rosuvastatin 20 MG TAB PO SCH (09:16)
[2022-02-28] MEDS: predniSONE 20 MG TAB PO SCH (09:16)
[2022-02-28] MEDS: Empagliflozin 10 MG TAB PO SCH (09:16)
[2022-02-28] MEDS: Calcitriol 0.25 MCG CAP PO SCH (09:16)
[2022-02-28] MEDS: Midodrine HCl 5 MG TAB PO SCH ×3 (09:16→21:51)
[2022-02-28] MEDS: Spironolactone 25 MG TAB PO SCH (09:16)
[2022-02-28] MEDS: FLUoxetine HCl 20 MG CAP PO SCH (09:16)
[2022-02-28] MEDS: Montelukast Sodium 10 mg Tablet PO SCH (09:16)
[2022-02-28] MEDS: Furosemide 20 MG/2 ML VIAL SLOW IVP SCH (09:17)
[2022-02-28] MEDS: Enoxaparin Sodium 30 MG/0.3 ML SYRINGE SC SCH (09:17)
[2022-02-28] MEDS ORDERED: Ondansetron ODT 4 MG TAB PO PRN (15:43)
[2022-03-01] MEDS: Enoxaparin Sodium 30 MG/0.3 ML SYRINGE SC SCH (09:28)
[2022-03-01] MEDS: Furosemide 20 MG/2 ML VIAL SLOW IVP SCH (09:28)
[2022-03-01] MEDS: Calcitriol 0.25 MCG CAP PO SCH (09:29)
[2022-03-01] MEDS: Empagliflozin 10 MG TAB PO SCH (09:29)
[2022-03-01] MEDS: Spironolactone 25 MG TAB PO SCH (09:29)
[2022-03-01] MEDS: Rosuvastatin 20 MG TAB PO SCH (09:29)
[2022-03-01] MEDS: FLUoxetine HCl 20 MG CAP PO SCH (09:29)
[2022-03-01] MEDS: Midodrine HCl 5 MG TAB PO SCH ×3 (09:29→21:59)
[2022-03-01] MEDS: predniSONE 20 MG TAB PO SCH (09:29)
[2022-03-01] MEDS: Montelukast Sodium 10 mg Tablet PO SCH (09:29)
[2022-03-01] MEDS ORDERED: Senokot S 8.6-50 MG TAB PO SCH (11:15)
[2022-03-01] MEDS ORDERED: Bisacodyl 10 MG SUPP PR SCH (11:15)
[2022-03-01] MEDS: Mometasone 200 MCG/Formoterol 5 MCG 120 PUFF INHALER INH SCH ×2 (12:55→19:38)
[2022-03-01] MEDS ORDERED: Mirtazapine 15 MG Soltab PO SCH (21:00)
[2022-03-01] MEDS: Senokot S 8.6-50 MG TAB PO SCH (21:59)
[2022-03-02] MEDS: Mometasone 200 MCG/Formoterol 5 MCG 120 PUFF INHALER INH SCH (07:32)
[2022-03-02 07:54] LABS: Anion Gap 11 mmol/L (10-20); BUN (Urea Nitrogen) 14 mg/dL (9.8-20.1); Calc. Creatinine Clearance 41 mL/min (70-130); Calcium 7.6 mg/dL (7.8-10.44); Carbon Dioxide 23 mmol/L (23-31); Chloride 110 mmol/L (98-107); Estimated GFR 36; Glucose 74 mg/dL (83-110); Potassium 4.4 mmol/L (3.5-5.1); Sodium 140 mmol/L (136-145)
[2022-03-02] MEDS: Enoxaparin Sodium 30 MG/0.3 ML SYRINGE SC SCH (09:48)
[2022-03-02] MEDS: Empagliflozin 10 MG TAB PO SCH (09:49)
[2022-03-02] MEDS: Rosuvastatin 20 MG TAB PO SCH (09:49)
[2022-03-02] MEDS: Calcitriol 0.25 MCG CAP PO SCH (09:49)
[2022-03-02] MEDS: Senokot S 8.6-50 MG TAB PO SCH (09:49)
[2022-03-02] MEDS: Montelukast Sodium 10 mg Tablet PO SCH (09:49)
[2022-03-02] MEDS: predniSONE 20 MG TAB PO SCH (09:49)
[2022-03-02] MEDS: FLUoxetine HCl 20 MG CAP PO SCH (09:49)
[2022-03-02] MEDS: Midodrine HCl 5 MG TAB PO SCH ×2 (09:49→14:33)
[2022-03-02] MEDS: Spironolactone 25 MG TAB PO SCH (09:52)
[2022-03-02 16:08] VITALS: BP 93/58; TEMP 98.2
== END 2022-03-02 16:01 | disposition home health service (06) | DRG 193 ==
LOC: ERS 10:54 → ERHOLD 13:33 → SURG A 14:17 → ERHOLD 14:31 → SURG A 14:39 → ERHOLD 14:40 → T4-B 16:15
PROVIDERS: ADMIT Family Medicine; ATTEND Family Medicine
DX: J15.9 Unspecified bacterial pneumonia (principal); I50.33 Acute on chronic diastolic (congestive) heart failure; J96.01 Acute respiratory failure with hypoxia; N17.9 Acute kidney failure, unspecified; J44.0 Chronic obstructive pulmonary disease with (acute) lower respiratory infection; J98.11 Atelectasis; N39.0 Urinary tract infection, site not specified; I25.10 Atherosclerotic heart disease of native coronary artery without angina pectoris; N18.9 Chronic kidney disease, unspecified; R91.1 Solitary pulmonary nodule; I95.1 Orthostatic hypotension; R63.0 Anorexia; Z88.2 Allergy status to sulfonamides; Z79.899 Other long term (current) drug therapy; Z79.82 Long term (current) use of aspirin; Z90.49 Acquired absence of other specified parts of digestive tract; Z90.710 Acquired absence of both cervix and uterus
CPT/HCPCS: 36415; 71045; 71260; 80048; 80053; 81003; 81015; 82728; 83036; 83735; 83880; 84100; 84145; 84443; 84484; 85025; 85610; 85730; 93005; 96374; 96375; J1650; J1940; J1956; J2930; J7512; Q0162; Q9967

== ENCOUNTER 2022-03-15 13:26 | Inpatient (IN) | payer MEDICARE, MEDICAID ==
[2022-03-15] MEDS ORDERED: NOREPINEPHRINE 8 MG/250 ML-D5W 250 ML ONE (13:58)
[2022-03-15] MEDS ORDERED: Cefepime 2 GM VIAL ONE (14:01)
[2022-03-15] MEDS ORDERED: VANCOMYCIN 2 GRAM/500 ML BAG 2 GM in Premix Bag 1 BAG IVPB SCH (14:15)
[2022-03-15 16:20] LABS: ALT (SGPT) 11 U/L (8-55); AST (SGOT) 60 U/L (5-34); Albumin 1.6 g/dL (3.4-4.8); Alkaline Phosphatase 184 U/L (40-110); Anion Gap 14 mmol/L (10-20); BUN (Urea Nitrogen) 31 mg/dL (9.8-20.1); Bilirubin, Total 0.7 mg/dL (0.2-1.2); CK (CPK) 85 U/L (29-168); Calc. Creatinine Clearance 0 mL/min (70-130); Carbon Dioxide 14 mmol/L (23-31); Chloride 110 mmol/L (98-107); Estimated GFR 19; Globulin 3.4 g/dL (2.4-3.5); Glucose 95 mg/dL (83-110); Potassium 4.1 mmol/L (3.5-5.1); Sodium 134 mmol/L (136-145)
[2022-03-15 16:29] LABS: Calcium 6.9 mg/dL (7.8-10.44)
[2022-03-15 16:42] LABS: Band 21 % (5-11); Hemoglobin 8.1 g/dL (12.0-16.0); Lymphocytes 6 % (21-51); MDiff Complete? YES; Mean Corpuscular Hemoglobin 39.1 pg (27.0-31.0); Mean Platelet Volume 9.1 fL (7.4-10.4); Monocytes 7 % (0-10); Neutrophil 66 % (42-75); Platelet Count 118 10x3/uL (130-400); Platelet Morphology Comment Appears Decreased; RBC Distribution Width 12.6 % (11.5-14.5); Red Blood Cell (RBC) Count 2.07 mill/uL (4.20-5.40); White Blood Cell (WBC) Count 11.5 10x3/uL (4.8-10.8)
[2022-03-15] MEDS ORDERED: Calcium Chloride 1 GM/10 ML Abboject SYRINGE ONE (16:43)
[2022-03-15 16:44] LABS: Prothrombin Time 13.9 sec (12.0-14.7)
[2022-03-15 16:45] LABS: PTT 49.1 sec (22.9-36.1)
[2022-03-15 17:02] LABS: Bacteria/HPF None Seen HPF (None Seen); Bilirubin Negative (Negative); Blood, Urine 2+ (Negative); Clarity Extra Turbid (Clear); Glucose, Urine (Dipstick) Normal (Negative); Ketone, Urine Negative (Negative); Leukocyte Negative Leu/uL (Negative); Nitrite Negative (Negative); Protein, Urine (Dipstick) 200 mg/dL (Neg-Trace); RBC/HPF 0-3 HPF (0-3); Specific Gravity, Urine 1.019 (1.002-1.036); Urobilinogen Normal mg/dL (Less than 2); WBC/HPF 0-3 HPF (0-3)
[2022-03-15] MEDS ORDERED: Ondansetron PF 4 MG/2 ML Vial IVP PRN (17:06)
[2022-03-15] MEDS ORDERED: Acetaminophen 325 MG TAB PO PRN (17:06)
[2022-03-15] MEDS ORDERED: Cholecalciferol 1,000 UNITS (25 MCG) TAB PO SCH (17:36)
[2022-03-15] MEDS ORDERED: Zinc Sulfate 220 MG CAP PO SCH (17:36)
[2022-03-15] MEDS ORDERED: Ascorbic Acid 500 mg Chewable Tablet PO SCH (17:36)
[2022-03-15] MEDS ORDERED: Thiamine 100 MG TAB PO SCH (17:45)
[2022-03-15] MEDS ORDERED: VANCOMYCIN IVPB PRN (18:57)
[2022-03-15] MEDS ORDERED: Vancomycin Dose by Levels Sliding Scale (Wt 71-99) FS SCH (19:00)
[2022-03-15] MEDS ORDERED: Benzonatate 100 MG CAP PO PRN (19:33)
[2022-03-15] MEDS ORDERED: Sodium Chloride 0.45% 1,000 ML IV SCH (19:45)
[2022-03-15 19:54] LABS: Troponin I 0.021 ng/mL (< 0.028)
[2022-03-15] MEDS: guaiFENesin ER 600 MG TAB PO SCH (20:17)
[2022-03-15] MEDS: Midodrine HCl 5 MG TAB PO SCH (20:17)
[2022-03-15] MEDS: Nicotine 14 MG PATCH TD SCH (20:18)
[2022-03-15] MEDS: Heparin 5,000 UNITS/ML VIAL SC SCH (20:36)
[2022-03-15 20:58] LABS: Strep pneumo Urine Ag NEGATIVE (NEGATIVE)
[2022-03-15] MEDS ORDERED: Famotidine/PF 20 mg/2ml Vial SLOW IVP SCH (21:00)
[2022-03-15] MEDS ORDERED: Vancomycin HCl 1 GM in Sodium Chloride 0.9% 250 ML 300 ML IVPB SCH (21:00)
[2022-03-15 22:27] LABS: Magnesium 1.5 mg/dL (1.6-2.6)
[2022-03-15 22:33] LABS: Troponin I 0.019 ng/mL (< 0.028)
[2022-03-15 22:39] LABS: Ferritin 642.96 ng/mL (10-291); Thyroid Stimulating Hormone 13.1117 uIU/mL (0.35-4.94)
[2022-03-15] MEDS ORDERED: Magnesium 2 GM/50 ML(in water) 2 GM in Premix Bag 1 BAG IVPB SCH (23:00)
[2022-03-15] MEDS: Albumin 25% 25 GM/100 ML BOT IVPB SCH (23:26)
[2022-03-16 00:07] LABS: Legionella Urinary Ag Negative (Negative)
[2022-03-16 05:18] LABS: ALT (SGPT) 10 U/L (8-55); AST (SGOT) 59 U/L (5-34); Albumin 1.9 g/dL (3.4-4.8); Alkaline Phosphatase 147 U/L (40-110); Anion Gap 12 mmol/L (10-20); BUN (Urea Nitrogen) 28 mg/dL (9.8-20.1); Bilirubin, Total 0.9 mg/dL (0.2-1.2); Calc. Creatinine Clearance 26 mL/min (70-130); Calcium 7.1 mg/dL (7.8-10.44); Carbon Dioxide 17 mmol/L (23-31); Chloride 110 mmol/L (98-107); Estimated GFR 19; Globulin 2.9 g/dL (2.4-3.5); Glucose 73 mg/dL (83-110); Protein, Total 4.8 g/dL (5.8-8.1); Sodium 135 mmol/L (136-145)
[2022-03-16] MEDS: Albumin 25% 25 GM/100 ML BOT IVPB SCH ×3 (05:21→17:07)
[2022-03-16 05:47] LABS: #Monocytes 0.7 thou/uL (0.11-0.59); #Neutrophils 5.9 thou/uL (1.40-6.50); %Basophils 0.2 % (0.0-1.0); %Eosinophils 0.2 % (0.0-10.0); %Lymphocytes 12.5 % (21.0-51.0); %Monocytes 8.8 % (0.0-10.0); %Neutrophils 78.3 % (42.0-75.0); Hemoglobin 7.1 g/dL (12.0-16.0); Mean Corpuscular HGB CONC 34.4 g/dL (32.0-36.0); Mean Corpuscular Hemoglobin 38.5 pg (27.0-31.0); Mean Platelet Volume 9.3 fL (7.4-10.4); Platelet Count 98 10x3/uL (130-400); RBC Distribution Width 12.5 % (11.5-14.5); Red Blood Cell (RBC) Count 1.84 mill/uL (4.20-5.40); White Blood Cell (WBC) Count 7.6 10x3/uL (4.8-10.8)
[2022-03-16] MEDS: Budesonide 0.5 MG/2 ML NEB NEB SCH (07:52)
[2022-03-16] MEDS: Ascorbic Acid 500 mg Chewable Tablet PO SCH (08:24)
[2022-03-16] MEDS: Aspirin 81 mg Enteric Coated Tablet PO SCH (08:24)
[2022-03-16] MEDS: guaiFENesin ER 600 MG TAB PO SCH ×2 (08:25→20:18)
[2022-03-16] MEDS: Montelukast Sodium 10 mg Tablet PO SCH (08:25)
[2022-03-16] MEDS: Empagliflozin 10 MG TAB PO SCH (08:25)
[2022-03-16] MEDS: FLUoxetine HCl 20 MG CAP PO SCH (08:25)
[2022-03-16] MEDS: Calcitriol 0.25 MCG CAP PO SCH (08:25)
[2022-03-16] MEDS: Midodrine HCl 5 MG TAB PO SCH ×3 (08:25→20:18)
[2022-03-16] MEDS: Folic Acid 1 MG TAB PO SCH (08:25)
[2022-03-16] MEDS: Thiamine 100 MG TAB PO SCH (08:26)
[2022-03-16] MEDS: Zinc Sulfate 220 MG CAP PO SCH (08:26)
[2022-03-16] MEDS: Dexamethasone 10 MG/ML VIAL SLOW IVP SCH (08:27)
[2022-03-16] MEDS: Pantoprazole 40 MG VIAL IVP SCH (08:27)
[2022-03-16] MEDS: Heparin 5,000 UNITS/ML VIAL SC SCH ×4 (08:27→22:17)
[2022-03-16] MEDS: Cholecalciferol 1,000 UNITS (25 MCG) TAB PO SCH (08:29)
[2022-03-16] MEDS ORDERED: Rosuvastatin 20 MG TAB PO SCH (09:00)
[2022-03-16] MEDS ORDERED: Dexamethasone 10 MG in Sodium Chloride 0.9% 50 ML IVPB SCH (09:00)
[2022-03-16] MEDS: Albuterol 200 PUFF (6.7GM INHALER) INH SCH ×4 (10:39→19:16)
[2022-03-16 12:01] VITALS: BP 108/53
[2022-03-16 12:39] LABS: Hemoglobin 7.2 g/dL (12.0-16.0)
[2022-03-16] MEDS ORDERED: Lactated Ringer's 1,000 ML IV SCH (12:45)
[2022-03-16] MEDS ORDERED: Furosemide 40 MG/4 ML VIAL ONE ×2 (14:47→14:51)
[2022-03-16] MEDS: Cefepime 1 GM in Sodium Chloride 0.9% 100 ML IVPB SCH (15:04)
[2022-03-16] MEDS ORDERED: Furosemide 20 MG/2 ML VIAL SLOW IVP SCH (15:15)
[2022-03-16 16:45] LABS: Vancomycin, Random 13.1 ug/mL (See Comment)
[2022-03-16] MEDS ORDERED: Vancomycin HCl 750 MG in Sodium Chloride 0.9% 250 ML 250 ML IVPB SCH (17:00)
[2022-03-16] MEDS: NOREPINEPHRINE 8 MG/250 ML-D5W 250 ML IVPB SCH (17:41)
[2022-03-16] MEDS ORDERED: Mometasone 200 MCG/Formoterol 5 MCG 120 PUFF INHALER INH SCH (18:45)
[2022-03-16] MEDS: Nicotine 14 MG PATCH TD SCH (20:18)
[2022-03-17 04:37] LABS: Hemoglobin 6.6 g/dL (12.0-16.0); Mean Corpuscular Hemoglobin 37.3 pg (27.0-31.0); Mean Platelet Volume 9.9 fL (7.4-10.4); Platelet Count 83 10x3/uL (130-400); RBC Distribution Width 12.9 % (11.5-14.5); Red Blood Cell (RBC) Count 1.76 mill/uL (4.20-5.40); White Blood Cell (WBC) Count 7.6 10x3/uL (4.8-10.8)
[2022-03-17 04:54] LABS: ALT (SGPT) 7 U/L (8-55); AST (SGOT) 50 U/L (5-34); Albumin 2.5 g/dL (3.4-4.8); Alkaline Phosphatase 118 U/L (40-110); Anion Gap 13 mmol/L (10-20); BUN (Urea Nitrogen) 31 mg/dL (9.8-20.1); Bilirubin, Total 0.9 mg/dL (0.2-1.2); Calc. Creatinine Clearance 24 mL/min (70-130); Calcium 7.4 mg/dL (7.8-10.44); Carbon Dioxide 15 mmol/L (23-31); Chloride 112 mmol/L (98-107); Estimated GFR 18; Globulin 2.5 g/dL (2.4-3.5); Glucose 95 mg/dL (83-110); Potassium 3.8 mmol/L (3.5-5.1); Sodium 136 mmol/L (136-145)
[2022-03-17 04:55] LABS: CRP (Inflammatory) 15.37 mg/dL (= or < 0.5)
[2022-03-17 05:02] LABS: Band 19 % (5-11); Lymphocytes 9 % (21-51); MDiff Complete? YES; Macrocytosis MODERATE=16-30 cells (100X) (0-5/hpf); Monocytes 7 % (0-10); Neutrophil 65 % (42-75); Ovalocytes SLIGHT = 2-5 cells (100X) (0-1/hpf); Platelet Morphology Comment Appears Decreased; Target Cells SLIGHT = 2-5 cells (100X) (0-1/hpf); Tear Drops SLIGHT = 2-5 cells (100X) (0-1/hpf)
[2022-03-17] MEDS: Albuterol 200 PUFF (6.7GM INHALER) INH SCH ×4 (05:56→19:39)
[2022-03-17] MEDS: Mometasone 200 MCG/Formoterol 5 MCG 120 PUFF INHALER INH SCH ×2 (05:56→19:39)
[2022-03-17] MEDS: Pantoprazole 40 MG VIAL IVP SCH (10:35)
[2022-03-17] MEDS: Dexamethasone 10 MG/ML VIAL SLOW IVP SCH (10:35)
[2022-03-17] MEDS: Heparin 5,000 UNITS/ML VIAL SC SCH ×3 (11:33→20:31)
[2022-03-17] MEDS: Cholecalciferol 1,000 UNITS (25 MCG) TAB PO SCH (11:34)
[2022-03-17] MEDS: Calcitriol 0.25 MCG CAP PO SCH (11:34)
[2022-03-17] MEDS: Ascorbic Acid 500 mg Chewable Tablet PO SCH (11:34)
[2022-03-17] MEDS: Aspirin 81 mg Enteric Coated Tablet PO SCH (11:34)
[2022-03-17] MEDS: Thiamine 100 MG TAB PO SCH (11:35)
[2022-03-17] MEDS: Folic Acid 1 MG TAB PO SCH (11:35)
[2022-03-17] MEDS: Midodrine HCl 5 MG TAB PO SCH ×3 (11:35→20:31)
[2022-03-17] MEDS: FLUoxetine HCl 20 MG CAP PO SCH (11:35)
[2022-03-17] MEDS: Montelukast Sodium 10 mg Tablet PO SCH (11:35)
[2022-03-17] MEDS: guaiFENesin ER 600 MG TAB PO SCH ×2 (11:35→20:31)
[2022-03-17] MEDS: Empagliflozin 10 MG TAB PO SCH (11:36)
[2022-03-17] MEDS: Zinc Sulfate 220 MG CAP PO SCH (11:36)
[2022-03-17 11:48] VITALS: BMI 35.9
[2022-03-17] MEDS: Cefepime 1 GM in Sodium Chloride 0.9% 100 ML IVPB SCH (15:50)
[2022-03-17 16:07] LABS: Vancomycin, Random 18.7 ug/mL (See Comment)
[2022-03-17] MEDS ORDERED: Vancomycin HCl 500 MG in Sodium Chloride 0.9% 100 ML IVPB SCH (17:00)
[2022-03-17 19:05] LABS: Hemoglobin 9.7 g/dL (12.0-16.0); Mean Corpuscular HGB CONC 33.6 g/dL (32.0-36.0); Mean Corpuscular Hemoglobin 35.2 pg (27.0-31.0); Mean Platelet Volume 9.9 fL (7.4-10.4); Platelet Count 66 10x3/uL (130-400); RBC Distribution Width 17.8 % (11.5-14.5); Red Blood Cell (RBC) Count 2.77 mill/uL (4.20-5.40); White Blood Cell (WBC) Count 10.2 10x3/uL (4.8-10.8)
[2022-03-17] MEDS: Nicotine 14 MG PATCH TD SCH (19:15)
[2022-03-17 19:27] LABS: Anisocytosis SLIGHT = 6-15 cells (100X) (0-5/hpf); Band 21 % (5-11); Lymphocytes 11 % (21-51); MDiff Complete? YES; Macrocytosis SLIGHT = 6-15 cells (100X) (0-5/hpf); Monocytes 4 % (0-10); Neutrophil 63 % (42-75); Platelet Morphology Comment Appears Decreased; Polychromasia SLIGHT = 2-3 cells (100X) (0-2/hpf); Reactive Lymphocytes 1 % (0-10)
[2022-03-17] MEDS: Budesonide 0.5 MG/2 ML NEB NEB SCH (19:29)
[2022-03-17 21:12] LABS: Hemoglobin 9.8 g/dL (12.0-16.0)
[2022-03-18 04:10] LABS: #Lymphocytes 1.2 thou/uL (1.20-3.40); #Monocytes 0.7 thou/uL (0.11-0.59); #Neutrophils 8.2 thou/uL (1.40-6.50); %Basophils 0.1 % (0.0-1.0); %Eosinophils 0.1 % (0.0-10.0); %Lymphocytes 11.5 % (21.0-51.0); %Monocytes 7.3 % (0.0-10.0); Hemoglobin 9.9 g/dL (12.0-16.0); Mean Corpuscular HGB CONC 36.3 g/dL (32.0-36.0); Mean Platelet Volume 9.9 fL (7.4-10.4); Platelet Count 59 10x3/uL (130-400); RBC Distribution Width 17.8 % (11.5-14.5); Red Blood Cell (RBC) Count 2.61 mill/uL (4.20-5.40); White Blood Cell (WBC) Count 10.1 10x3/uL (4.8-10.8)
[2022-03-18 04:23] LABS: ALT (SGPT) 8 U/L (8-55); AST (SGOT) 41 U/L (5-34); Albumin 2.2 g/dL (3.4-4.8); Alkaline Phosphatase 114 U/L (40-110); Anion Gap 14 mmol/L (10-20); BUN (Urea Nitrogen) 36 mg/dL (9.8-20.1); Bilirubin, Total 0.8 mg/dL (0.2-1.2); Calc. Creatinine Clearance 23 mL/min (70-130); Calcium 7.5 mg/dL (7.8-10.44); Carbon Dioxide 13 mmol/L (23-31); Chloride 114 mmol/L (98-107); Estimated GFR 16; Globulin 2.7 g/dL (2.4-3.5); Glucose 71 mg/dL (83-110); Magnesium 1.9 mg/dL (1.6-2.6); Potassium 4.1 mmol/L (3.5-5.1); Protein, Total 4.9 g/dL (5.8-8.1); Sodium 137 mmol/L (136-145)
[2022-03-18] MEDS: NOREPINEPHRINE 8 MG/250 ML-D5W 250 ML IVPB SCH (04:50)
[2022-03-18] MEDS: Albuterol 200 PUFF (6.7GM INHALER) INH SCH ×4 (08:08→18:58)
[2022-03-18] MEDS: Mometasone 200 MCG/Formoterol 5 MCG 120 PUFF INHALER INH SCH ×2 (08:08→18:58)
[2022-03-18] MEDS: Dexamethasone 10 MG/ML VIAL SLOW IVP SCH (09:52)
[2022-03-18] MEDS: Aspirin 81 mg Enteric Coated Tablet PO SCH (09:53)
[2022-03-18] MEDS: FLUoxetine HCl 20 MG CAP PO SCH (09:53)
[2022-03-18] MEDS: Cholecalciferol 1,000 UNITS (25 MCG) TAB PO SCH (09:53)
[2022-03-18] MEDS: Ascorbic Acid 500 mg Chewable Tablet PO SCH (09:53)
[2022-03-18] MEDS: Calcitriol 0.25 MCG CAP PO SCH (09:53)
[2022-03-18] MEDS: Pantoprazole 40 MG VIAL IVP SCH (09:53)
[2022-03-18] MEDS: Folic Acid 1 MG TAB PO SCH (09:53)
[2022-03-18] MEDS: Midodrine HCl 5 MG TAB PO SCH ×3 (09:54→20:53)
[2022-03-18] MEDS: Zinc Sulfate 220 MG CAP PO SCH (09:54)
[2022-03-18] MEDS: Montelukast Sodium 10 mg Tablet PO SCH (09:54)
[2022-03-18] MEDS: Thiamine 100 MG TAB PO SCH (09:54)
[2022-03-18] MEDS: guaiFENesin ER 600 MG TAB PO SCH ×2 (09:54→20:53)
[2022-03-18] MEDS: Cefepime 1 GM in Sodium Chloride 0.9% 100 ML IVPB SCH (16:34)
[2022-03-18 16:43] LABS: Vancomycin, Random 22.5 ug/mL (See Comment)
[2022-03-18] MEDS: Nicotine 14 MG PATCH TD SCH (19:27)
[2022-03-19] MEDS: NOREPINEPHRINE 8 MG/250 ML-D5W 250 ML IVPB SCH ×3 (01:14→23:33)
[2022-03-19 04:51] LABS: ALT (SGPT) 9 U/L (8-55); AST (SGOT) 34 U/L (5-34); Albumin 2.1 g/dL (3.4-4.8); Alkaline Phosphatase 114 U/L (40-110); Anion Gap 15 mmol/L (10-20); BUN (Urea Nitrogen) 46 mg/dL (9.8-20.1); Bilirubin, Total 0.8 mg/dL (0.2-1.2); Calc. Creatinine Clearance 21 mL/min (70-130); Calcium 7.6 mg/dL (7.8-10.44); Carbon Dioxide 12 mmol/L (23-31); Chloride 114 mmol/L (98-107); Estimated GFR 14; Glucose 64 mg/dL (83-110); Potassium 4.1 mmol/L (3.5-5.1); Protein, Total 5.1 g/dL (5.8-8.1); Sodium 137 mmol/L (136-145)
[2022-03-19 05:32] LABS: Anisocytosis SLIGHT = 6-15 cells (100X) (0-5/hpf); Band 25 % (5-11); Lymphocytes 10 % (21-51); MDiff Complete? YES; Macrocytosis MODERATE=16-30 cells (100X) (0-5/hpf); Mean Corpuscular HGB CONC 33.3 g/dL (32.0-36.0); Mean Corpuscular Hemoglobin 34.9 pg (27.0-31.0); Mean Platelet Volume 10.5 fL (7.4-10.4); Monocytes 4 % (0-10); Myelocyte 1 % (0-0); Neutrophil 60 % (42-75); Ovalocytes SLIGHT = 2-5 cells (100X) (0-1/hpf); Platelet Count 55 10x3/uL (130-400); Platelet Morphology Comment Appears Decreased; RBC Distribution Width 17.8 % (11.5-14.5); Red Blood Cell (RBC) Count 2.85 mill/uL (4.20-5.40); White Blood Cell (WBC) Count 10.3 10x3/uL (4.8-10.8)
[2022-03-19] MEDS: Pantoprazole 40 MG VIAL IVP SCH (08:53)
[2022-03-19] MEDS: Dexamethasone 10 MG/ML VIAL SLOW IVP SCH (08:53)
[2022-03-19 08:59] LABS: Base Excess (BEa) -13.5 mEq/L (-2.0 to +3.0); Calcium, Ionized (arterial) 1.08 mmol/L (1.12-1.30); Carboxyhemoglobin (COHb) 1.5 gm% (0.0-3.0); Hemoglobin (Hb) 11.6 g/dL (12.0-16.0); Potassium - ABG Lab 4.03 mmol/L (3.70-5.30); pH, Arterial 7.22 (7.35-7.45)
[2022-03-19] MEDS: Albuterol 200 PUFF (6.7GM INHALER) INH SCH ×3 (09:10→14:52)
[2022-03-19] MEDS: Mometasone 200 MCG/Formoterol 5 MCG 120 PUFF INHALER INH SCH ×2 (09:10→19:11)
[2022-03-19 09:36] LABS: Actual Bicarbonate (HCO3a) 13.1 mEq/L (22-28); O2 Tension (PaO2), arterial 48.1 mmHg (> 70.0)
[2022-03-19 09:37] LABS: Puncture Site RRA
[2022-03-19] MEDS ORDERED: Sodium Bicarb 50 MEQ/50 ML VIAL ONE (10:33)
[2022-03-19] MEDS ORDERED: Sodium Bicarb 50 MEQ/50 ML VIAL IVP SCH (10:45)
[2022-03-19] MEDS: Aspirin 81 mg Enteric Coated Tablet PO SCH (11:00)
[2022-03-19] MEDS: Ascorbic Acid 500 mg Chewable Tablet PO SCH (11:00)
[2022-03-19] MEDS: Cholecalciferol 1,000 UNITS (25 MCG) TAB PO SCH (11:00)
[2022-03-19] MEDS: Calcitriol 0.25 MCG CAP PO SCH (11:00)
[2022-03-19] MEDS: Thiamine 100 MG TAB PO SCH (11:01)
[2022-03-19] MEDS: Montelukast Sodium 10 mg Tablet PO SCH (11:01)
[2022-03-19] MEDS: guaiFENesin ER 600 MG TAB PO SCH ×2 (11:01→21:00)
[2022-03-19] MEDS: FLUoxetine HCl 20 MG CAP PO SCH (11:01)
[2022-03-19] MEDS: Midodrine HCl 5 MG TAB PO SCH ×3 (11:01→21:00)
[2022-03-19] MEDS: Folic Acid 1 MG TAB PO SCH (11:01)
[2022-03-19] MEDS: Zinc Sulfate 220 MG CAP PO SCH (11:02)
[2022-03-19] MEDS: CEFEPIME HCL IN DEXTROSE 5 % 1 GM in Premix Bag 1 BAG IVPB SCH (15:51)
[2022-03-19] MEDS ORDERED: Albuterol Sulfate 2.5 mg/0.5 ml Neb ONE (18:20)
[2022-03-19] MEDS: Nicotine 14 MG PATCH TD SCH (19:51)
[2022-03-20] MEDS ORDERED: Albuterol Sulfate 2.5 mg/0.5 ml Neb ONE (00:57)
[2022-03-20] MEDS: NOREPINEPHRINE 8 MG/250 ML-D5W 250 ML IVPB SCH ×6 (03:40→20:24)
[2022-03-20 04:06] LABS: ALT (SGPT) 8 U/L (8-55); AST (SGOT) 31 U/L (5-34); Albumin 1.9 g/dL (3.4-4.8); Alkaline Phosphatase 101 U/L (40-110); Anion Gap 15 mmol/L (10-20); BUN (Urea Nitrogen) 55 mg/dL (9.8-20.1); Bilirubin, Total 0.6 mg/dL (0.2-1.2); Calc. Creatinine Clearance 18 mL/min (70-130); Calcium 7.4 mg/dL (7.8-10.44); Carbon Dioxide 13 mmol/L (23-31); Chloride 113 mmol/L (98-107); Estimated GFR 12; Potassium 4.3 mmol/L (3.5-5.1); Protein, Total 4.9 g/dL (5.8-8.1); Sodium 137 mmol/L (136-145)
[2022-03-20 04:12] LABS: Glucose 54 mg/dL (83-110)
[2022-03-20] MEDS ORDERED: Dextrose 50% Abboject 50 ML SYRINGE ONE (04:24)
[2022-03-20 05:16] LABS: Band 11 % (5-11); Eosinophils 1 % (0-10); Hemoglobin 10.3 g/dL (12.0-16.0); Hypochromia SLIGHT = 6-15 cells (100X) (0-5/hpf); Lymphocytes 19 % (21-51); MDiff Complete? YES; Mean Corpuscular HGB CONC 32.1 g/dL (32.0-36.0); Mean Corpuscular Hemoglobin 35.1 pg (27.0-31.0); Mean Platelet Volume 11.5 fL (7.4-10.4); Monocytes 8 % (0-10); Neutrophil 61 % (42-75); Platelet Count 47 10x3/uL (130-400); Platelet Morphology Comment Appears Decreased; RBC Distribution Width 18.2 % (11.5-14.5); Red Blood Cell (RBC) Count 2.92 mill/uL (4.20-5.40); White Blood Cell (WBC) Count 18.7 10x3/uL (4.8-10.8)
[2022-03-20] MEDS ORDERED: Dextrose 5% in Water 1,000 ML IV PRN (05:30)
[2022-03-20] MEDS ORDERED: Dextrose 50% Abboject 50 ML SYRINGE IVP PRN (05:30)
[2022-03-20] MEDS ORDERED: Levothyroxine 100 MCG SDV IVP SCH ×2 (06:00→09:00)
[2022-03-20] MEDS: Mometasone 200 MCG/Formoterol 5 MCG 120 PUFF INHALER INH SCH ×2 (08:03→19:04)
[2022-03-20] MEDS: Pantoprazole 40 MG VIAL IVP SCH (08:37)
[2022-03-20] MEDS: Dexamethasone 10 MG/ML VIAL SLOW IVP SCH (08:37)
[2022-03-20] MEDS: Ascorbic Acid 500 mg Chewable Tablet PO SCH (08:38)
[2022-03-20] MEDS: Aspirin 81 mg Enteric Coated Tablet PO SCH (08:39)
[2022-03-20] MEDS: Calcitriol 0.25 MCG CAP PO SCH (08:39)
[2022-03-20] MEDS: FLUoxetine HCl 20 MG CAP PO SCH (08:40)
[2022-03-20] MEDS: Midodrine HCl 5 MG TAB PO SCH ×3 (08:40→20:24)
[2022-03-20] MEDS: Folic Acid 1 MG TAB PO SCH (08:40)
[2022-03-20] MEDS: guaiFENesin ER 600 MG TAB PO SCH ×2 (08:40→20:23)
[2022-03-20] MEDS: Cholecalciferol 1,000 UNITS (25 MCG) TAB PO SCH (08:40)
[2022-03-20] MEDS: Montelukast Sodium 10 mg Tablet PO SCH (08:41)
[2022-03-20] MEDS: Zinc Sulfate 220 MG CAP PO SCH (08:41)
[2022-03-20] MEDS: Thiamine 100 MG TAB PO SCH (08:41)
[2022-03-20] MEDS ORDERED: Dextrose 5% in Water 1,000 ML IV SCH (09:45)
[2022-03-20] MEDS: CEFEPIME HCL IN DEXTROSE 5 % 1 GM in Premix Bag 1 BAG IVPB SCH (16:03)
[2022-03-20] MEDS: Nicotine 14 MG PATCH TD SCH (20:23)
[2022-03-20] MEDS ORDERED: Dexamethasone 10 MG/ML VIAL SLOW IVP SCH (21:00)
[2022-03-21] MEDS: NOREPINEPHRINE 8 MG/250 ML-D5W 250 ML IVPB SCH ×2 (00:41→04:30)
[2022-03-21 05:21] LABS: ALT (SGPT) 9 U/L (8-55); AST (SGOT) 66 U/L (5-34); Albumin 1.7 g/dL (3.4-4.8); Alkaline Phosphatase 125 U/L (40-110); Anion Gap 15 mmol/L (10-20); BUN (Urea Nitrogen) 59 mg/dL (9.8-20.1); Bilirubin, Total 0.5 mg/dL (0.2-1.2); Calc. Creatinine Clearance 17 mL/min (70-130); Calcium 7.3 mg/dL (7.8-10.44); Carbon Dioxide 13 mmol/L (23-31); Chloride 108 mmol/L (98-107); Estimated GFR 11; Globulin 2.9 g/dL (2.4-3.5); Glucose 64 mg/dL (83-110); Potassium 5.9 mmol/L (3.5-5.1); Protein, Total 4.6 g/dL (5.8-8.1); Sodium 130 mmol/L (136-145)
[2022-03-21 07:00] LABS: Anisocytosis SLIGHT = 6-15 cells (100X) (0-5/hpf); Band 53 % (5-11); Hemoglobin 9.2 g/dL (12.0-16.0); Lymphocytes 5 % (21-51); MDiff Complete? YES; Mean Corpuscular HGB CONC 31.4 g/dL (32.0-36.0); Mean Corpuscular Hemoglobin 35.3 pg (27.0-31.0); Metamyelocyte 4 % (0-0); Monocytes 4 % (0-10); Myelocyte 2 % (0-0); Neutrophil 32 % (42-75); Platelet Count 24 10x3/uL (130-400); Platelet Morphology Comment Appears Decreased; RBC Distribution Width 17.9 % (11.5-14.5); White Blood Cell (WBC) Count 36.7 10x3/uL (4.8-10.8)
[2022-03-21] MEDS: Mometasone 200 MCG/Formoterol 5 MCG 120 PUFF INHALER INH SCH (07:26)
[2022-03-21 15:22] VITALS: TEMP 98.3
== END 2022-03-21 08:55 | disposition expired | DRG 871 ==
LOC: ERS 13:26 → CCU 15:57
PROVIDERS: ADMIT Internal Medicine; ATTEND Internal Medicine
PROC: 02HV33Z Insertion of Infusion Device into Superior Vena Cava, Percutaneous Approach (ICD-10-PCS; principal; 2022-03-15)
PROC: 8E0ZXY6 Isolation (ICD-10-PCS; 2022-03-15)
PROC: 3E043XZ Introduction of Vasopressor into Central Vein, Percutaneous Approach (ICD-10-PCS; 2022-03-15)
PROC: 3E04329 Introduction of Other Anti-infective into Central Vein, Percutaneous Approach (ICD-10-PCS; 2022-03-15)
PROC: 30243J1 Transfusion of Nonautologous Serum Albumin into Central Vein, Percutaneous Approach (ICD-10-PCS; 2022-03-15)
PROC: 30233N1 Transfusion of Nonautologous Red Blood Cells into Peripheral Vein, Percutaneous Approach (ICD-10-PCS; 2022-03-17)
DX: A41.50 Gram-negative sepsis, unspecified (principal); E43 Unspecified severe protein-calorie malnutrition; J12.82 Pneumonia due to coronavirus disease 2019; R65.21 Severe sepsis with septic shock; U07.1 COVID-19; N17.0 Acute kidney failure with tubular necrosis; J80 Acute respiratory distress syndrome; J15.6 Pneumonia due to other Gram-negative bacteria; J44.0 Chronic obstructive pulmonary disease with (acute) lower respiratory infection; I50.32 Chronic diastolic (congestive) heart failure; R64 Cachexia; I13.2 Hypertensive heart and chronic kidney disease with heart failure and with stage 5 chronic kidney disease, or end stage renal disease; N18.5 Chronic kidney disease, stage 5; D62 Acute posthemorrhagic anemia; K92.2 Gastrointestinal hemorrhage, unspecified; Z66 Do not resuscitate; Z51.5 Encounter for palliative care; E87.1 Hypo-osmolality and hyponatremia; I25.10 Atherosclerotic heart disease of native coronary artery without angina pectoris; F32.A Depression, unspecified; I95.1 Orthostatic hypotension; F17.210 Nicotine dependence, cigarettes, uncomplicated; E83.51 Hypocalcemia; E88.09 Other disorders of plasma-protein metabolism, not elsewhere classified; D69.6 Thrombocytopenia, unspecified; D63.1 Anemia in chronic kidney disease; E03.9 Hypothyroidism, unspecified; L89.151 Pressure ulcer of sacral region, stage 1; L89.611 Pressure ulcer of right heel, stage 1; Z79.899 Other long term (current) drug therapy; Z90.49 Acquired absence of other specified parts of digestive tract; Z88.2 Allergy status to sulfonamides; Z90.710 Acquired absence of both cervix and uterus; Z79.890 Hormone replacement therapy; Z68.37 Body mass index [BMI] 37.0-37.9, adult; E83.42 Hypomagnesemia; E16.2 Hypoglycemia, unspecified
CPT/HCPCS: 36415; 36416; 36430; 36556; 36600; 51701; 71045; 76770; 80053; 80202; 81003; 81015; 82550; 82607; 82728; 82805; 83550; 83605; 83735; 84134; 84439; 84443; 84484; 85025; 85610; 85730; 86140; 86850; 86900; 86901; 87040; 87081; 87086; 87449; 87899; 93005; 94660; 96365; 96366; 96368; 97139; 99292; C9113; J0692; J1100; J1644; J1940; J3370; J3475; J3490; J7050; J7070; J7120; J7611; J7620; J7626; J7999; P9016; P9047